=== PATIENT | male | born 1945 | race Caucasian/White ===

== ENCOUNTER 2024-10-06 03:56 | Emergency (ER) | payer BC, SELFPAY ==
[2024-10-06 04:02] VITALS: BP 152/79; PULSE 84; RESP 18; TEMP 37; O2SAT 92
--- NOTE | 2024-10-06 04:38 | ED.GENADULT ---
HPI - General Adult General Chief complaint: Weakness Stated complaint: confusion, possible UTI Time Seen by Provider: 10/06/24 04:22 History of Present Illness HPI narrative: 79-year-old male with a history of Parkinson's dementia presents to the emergency department for evaluation of weakness via EMS. Daughter and son-in-law accompany shortly after. Patient is somewhat prone to UTIs, family wonders if that may be going on he does seem weaker and more confused and has asked to come to see the doctor. No obvious fevers. No vomiting or diarrhea. Appetite has been stable. He did complain of a mild headache yesterday evening. Has not complained of chest pain or cardiac symptoms. Family reports that his blood pressure was running a little high few weeks ago but has seem to crest back to normal. There have been no obvious other focal findings other than increased weakness. He does use a wheelchair at baseline but does attempt to get up and go to the bathroom by himself at times and does therefore subsequently fall. Daughter last visited him yesterday evening when she will him [facility]. He said that he had felt off but could not give more descriptive symptoms. He is full code. Does not seem to be in pain or any other localizing symptoms per family. Past medical history notable for chronic weakness secondary to Parkinson's disease. He also has diabetes, hypertension and hyperlipidemia. His medications are reviewed, do seem to be listed accurate in comparison to his records from [facility]. He is a nonsmoker, full code, good family involvement. No allergies. ROS is difficult to obtain from patient as speaking is fairly difficult for him but he will answer yes no on my review of systems questions and seems pertinent only for weakness and headache. Otherwise negative times 12 systems. Related Data Home Medications ?Medication ?Instructions ?Recorded ?Confirmed aspirin 81 mg tablet,delayed 81 mg PO DAILY 10/06/24 10/06/24 release atorvastatin 40 mg tablet 40 mg PO DAILY 10/06/24 10/06/24 carbidopa 25 mg-levodopa 100 mg tab PO 10/06/24 tablet cholecalciferol (vitamin D3) 25 25 mcg PO 2XW 10/06/24 10/06/24 mcg (1,000 unit) capsule donepezil 10 mg tablet 10 mg PO QPM 10/06/24 10/06/24 fludrocortisone 0.1 mg tablet 0.1 mg PO DAILY 10/06/24 10/06/24 glipizide 2.5 mg tablet 2.5 mg PO QAM diabetes mellitus 10/06/24 10/06/24 type 2 magnesium L-lactate 84 mg 1 PO BID 10/06/24 tablet,extended release (Magtab) metformin 500 mg tablet mg PO 10/06/24 midodrine 2.5 mg tablet 2.5 mg PO DAILY PRN blood pressure 10/06/24 10/06/24 sennosides 8.6 mg tablet (senna) 8.6 mg PO QPM constipation 10/06/24 10/06/24 Allergies Allergy/AdvReac Type Severity Reaction Status Date / Time No Known Drug Allergies Allergy Verified 10/06/24 04:10 Exam Const: Vital Signs, click to edit/add: Vital Signs - 24 hr 10/06/24 04:02 Temperature 98.6 F Pulse Rate [Pulse Oximeter] 84 Respiratory Rate 18 Blood Pressure [Ri ght Upper Arm] 152/79 H Pulse Oximetry 92 Oxygen Delivery Me thod Room Air Documenting provider has reviewed patient's vital signs: yes Common normals: no apparent distress General appearance: well kempt Other: Flat affect and masked faces consistent with Parkinson's disease. He will slowly answer yes no for questions insight does seem fair. Appears well nourished and well hydrated. Well cared for. HENMT: Common normals: normocephalic Head and scalp: normocephalic Mouth: oral and palatal mucosa normal Throat: posterior oropharynx normal Other: Masked faces but symmetric with no droop. Eye: Common normals: PERRL and EOMs intact bilaterally Pupil: PERRL Neck & C-Spine: Common normals: no lymphadenopathy General: normal visual inspection Chest: Common normals: inspection of chest normal Resp: Common normals: normal respiratory effort and no use of accessory muscles Other: Decreased breath sounds throughout but unlabored. No obvious crackles or wheeze. Cardio: Common normals: regular rate, regular rhythm, S1 normal heart sound, S2 normal heart sound and no murmurs Rate: regular rate Rhythm: regular rhythm Heart sounds: S1 normal and S2 normal GI: Common normals: Normal to inspection, nondistended, normoactive bowel sounds present, soft to palpation, non-tender, no hepatosplenomegaly and no masses Palpation: soft and no hepatosplenomegaly Extremity: Other: Extremities are examined with no obvious ulcers. There is a trace amount of edema of the lower extremities but no weeping or open sores. Appears pretty symmetric. Neuro: Other: Muscular rigidity consistent with Parkinson's disease. He can move on command but it is very slow and difficult. It does however seem symmetric. Psych: Appearance: well kempt Attitude: calm Insight: fair Judgement: limited Skin: Common normals: no rashes or lesions noted General skin exam: no rashes or lesions noted Course Course ED Course: 79-year-old male presenting with generalized weakness in the setting of chronic weakness and debility secondary to Parkinson's disease with questionable recent mild headache. Suspect viral illness, cannot exclude UTI, metabolic abnormality, acute coronary syndrome, acidosis, dehydration, electrolyte abnormality, other infections. Will start with viral swabs, basic labs, urinalysis, EKG. Vitals are stable at this time. Give Tylenol for headache and Await findings. Reevaluation(s) Time of Reevaluation #1: 05:53 Reevaluation #1: Re-examined patient, he is asleep, will arouse to voice. Family returned and I counseled them on the lab findings and results of monitoring. These are all reassuring. I do not think there is anything life-threatening going on. He may have a mild viral illness contributing to not feeling well but this could also be his dementia, things being out of routine because of the holiday, minor other nuances that the patient just can not convey to us. At this time, I recommend Tylenol p.r.n. for headache and myalgias and otherwise conservative management. Family was comfortable with this and is agreeable to driving him home. Vital Signs Vital signs: Initial Vital Signs Temperature 98.6 F 10/06/24 04:02 Temperature Source Temporal Artery Scan 10/06/24 04:02 Pulse Rate 84 10/06/24 04:02 Respiratory Rate 18 10/06/24 04:02 Blood Pressure 152/79 H 10/06/24 04:02 Blood Pressure Mean 103 10/06/24 04:02 Blood Pressure Position Supine 10/06/24 04:02 Pulse Oximetry 92 10/06/24 04:02 Oxygen Delivery Method Room Air 10/06/24 04:02 Vital Signs Temperature 98.6 F 10/06/24 04:02 Pulse Rate 84 10/06/24 04:02 Respiratory Rate 18 10/06/24 04:02 Blood Pressure 152/79 H 10/06/24 04:02 Pulse Oximetry 92 10/06/24 04:02 Oxygen Delivery Method Room Air 10/06/24 04:02 Temperature 98.6 F 10/06/24 04:02 Pulse Rate 84 10/06/24 04:02 Respiratory Rate 18 10/06/24 04:02 Blood Pressure 152/79 H 10/06/24 04:02 Pulse Oximetry 92 10/06/24 04:02 Oxygen Delivery Method Room Air 10/06/24 04:02 Medications Administered Medications: Discontinued Medications Generic Name Dose Route Start Last Admin Trade Name Freq PRN Reason Stop Dose Admin Acetaminophen 1,000 mg 10/06/24 04:48 10/06/24 04:55 Acetaminophen 500 Mg Tablet PO 10/06/24 04:49 1,000 mg ONCE ONE Administration Medical Decision Making Lab Data Lab results reviewed: Yes I reviewed the patient's lab results Lab results narrative: Labs all reassuring. Labs: Lab Results 10/06/24 10/06/24 Range/Units 04:23 05:00 WBC 9.09 (4.50-11.00) K/uL RBC 4.07 L (4.30-5.90) m/uL Hgb 12.5 L (13.5-17.5) gm/dL Hct 38.6 (37.0-53.0) % MCV 95 (80-100) fL MCH 31 (26-34) pg MCHC 32 (32-36) gm/dL RDW Coeff of Kenia 12.7 (11.5-15.5) % Plt Count 239 (140-440) K/uL Neut % (Auto) 75.4 H (42.0-72.0) % Lymph % (Auto) 11.8 L (20-44) % Bates % (Auto) 8.8 (0.0-11.0) % Eos % (Auto) 3.5 (0.0-7.0) % Baso % (Auto) 0.2 (0.0-3.0) % Neut # (Auto) 6.90 (1.7-7.0) K/uL Lymph # (Auto) 1.10 (0.90-2.90) K/uL Bates # (Auto) 0.80 (0.00-0.90) K/UL Eos # (Auto) 0.32 (0.00-0.50) K/uL Baso # (Auto) 0.02 (0.00-0.30) K/uL Abs Immat Gran (auto) 0.03 (0.00-0.30) K/uL Imm/Tot Granulo (auto) 0.3 % Sodium 136 (135-149) mmol/L Potassium 3.9 (3.6-5.1) mmol/L Chloride 101 (96-114) mmol/L Carbon Dioxide 28 (20-32) mmol/L Anion Gap 7 (7-15) mEq/L BUN 17 (7-30) mg/dL Creatinine 0.9 (0.5-1.5) mg/dL Estimated GFR 86 ml/min Glucose 137 H (60-115) mg/dL Lactate 2.0 H (0.5-1.9) mmol/L Calcium 8.9 (8.4-10.6) mg/dL Total Bilirubin 0.3 (0.1-1.5) mg/dL AST 19 (12-35) U/L ALT 9 (4-50) U/L Alkaline Phosphatase 101 (40-150) U/L C-Reactive Protein < 0.5 L (0.5-1.0) mg/dL NT-Pro-B Natriuret Pep 351 pg/mL Total Protein 7.1 (6.0-8.3) g/dL Albumin 4.0 (3.3-5.0) g/dL Urine Color Yellow (Yellow) Urine Appearance Clear (Clear) Urine pH 6.5 (5.0-8.5) Ur Specific [place] 1.020 (1.000-1.030) Urine Protein Negative (Negative) Urine Glucose (UA) Negative (Negative) Urine Ketones Negative (Negative) Urine Blood Negative (Negative) Urine Nitrite Negative (Negative) Urine Bilirubin Negative (Negative) Urine Urobilinogen 0.2 (0.2-1.0) Ur Leukocyte Esterase Negative (Negative) Urine RBC 0-2 (0-2) Urine WBC 0-2 (0-5) Ur Squamous Epith Cells Few (None-Few) Urine Bacteria None (None) SARS-CoV-2 (PCR) Negative SARS-CoV-2 (Negative) Influenza Type A (PCR) Negative PCR FLU A (Negative) Influenza Type B (PCR) Negative PCR FLU B (Negative) RSV (PCR) Negative PCR RSV (Negative) POC Troponin I 0.01 (0.01-0.04) ng/ml ECG Data Attestation: I personally reviewed and interpreted this ECG as follows: Prior ECG tracings: available for review (Comparison 05/08/2022) Interpretation: Sinus rhythm. Interpretation is difficult because of the parkinsonian tremor. But the interval and axis seem unchanged from 629/22. There is a left axis deviation but no obvious new ST or T-wave changes. Stable EKG. Discharge Plan Discharge Clinical Impression: Feared complaint without diagnosis Patient Disposition: Home w/ Parent or Adult Condition: Stable Instructions: Weakness (ED) Additional Instructions: As we discussed, all labs, urine test, EKG, cardiac workup, electrolytes, liver enzymes, inflammatory markers all look normal. This is great news. I suspect that he is not feeling well from some mild viral illness but all of the swabs for the more dangerous conditions such as COVID, RSV and influenza are negative. I recommend Tylenol 1000 mg 3 times daily for headache and discomfort for the next few days. Continue to watch for any progression of symptoms. At this time I do not recommend changing any of his home medications or current treatments. Please return to the emergency department if symptoms worsen, fevers, vomiting or stroke-like symptoms. Activity Level: No Restrictions Discharge Diet: Regular Prescriptions: No Action atorvastatin 40 mg tablet 40 mg PO DAILY metformin 500 mg tablet PO sennosides [senna] 8.6 mg tablet 8.6 mg PO QPM donepezil 10 mg tablet 10 mg PO QPM aspirin 81 mg tablet,delayed release (DR/EC) 81 mg PO DAILY midodrine 2.5 mg tablet 2.5 mg PO DAILY PRN (Reason: blood pressure) carbidopa-levodopa 25-100 mg tablet PO fludrocortisone 0.1 mg tablet 0.1 mg PO DAILY cholecalciferol (vitamin D3) 25 mcg (1,000 unit) capsule 25 mcg PO 2XW magnesium L-lactate [Magtab] 84 mg tablet extended release 1 PO BID glipizide 2.5 mg tablet 2.5 mg PO QAM Follow Up/Referrals: Maureen Lester MD [Primary Care Provider] - Stand Alone Forms: MyHealth Info Instructions
[2024-10-06] MEDS: ACETAMINOPHEN 500 MG TABLET 1000 MG PO (04:55)
--- OUTSIDE RECORDS SUMMARY | 2024-10-06 04:55 | XMS_ITS | Clinical Summary ---
Author Organization [facility] Address [address], [place] [address] Care Team Providers Care Online Advertising Analyst Name Role Phone Unavailable Primary Care Provider Unavailabl e Source Comments You are receiving this document as you are listed as the primary care provider,follow-up provider, or the patient has been referred to you for consultation.This is in compliance with the Medicare and[facility] EHR Incentive Program,which states Providers who transition their patient to another setting of careor provider of care or refers their patient to another provider of care shouldprovide summary care record for each transition of care or referral. [employer] Allergies No known active allergies Medications Medication Sig Dispensed Refills Start Date End Date Status aspirin EC 81 MG enteric coated tablet Take 1 Tablet (81 mg) by mouth daily. Active atorvastatin (LIPITOR) 40 MG tablet Take 1 Tablet (40 mg) by mouth daily. Active carbidopa-levodopa (SINEMET) 25-100 MG tablet Take 2 Tablets by mouth three times a day. 01/22/2023 Active cyanocobalamin 500 MCG tablet Take 2 Tablets (1,000 mcg) by mouth daily. Active fludrocortisone (FLORINEF) 0.1 MG tablet Take 1 Tablet (0.1 mg) by mouth daily. Active MAGTAB 84 MG (7MEQ) Take 84 mg by mouth two times a day. Active metFORMIN (GLUCOPHAGE) 1000 MG tablet Take 1 Tablet (1,000 mg) by mouth two times a day. 10/09/2022 Active midodrine (PROAMATINE) 2.5 MG tablet Take 1 Tablet (2.5 mg) by mouth two times a day. 01/31/2023 Active acetaminophen (TYLENOL) 325 MG tablet Take 1-2 Tablets (325-650 mg) by mouth every 6 hours as needed for Pain. Active donepezil (ARICEPT) 10 MG tablet Take 1 Tablet (10 mg) by mouth daily at bedtime. 90 Tablet 3 05/01/2023 Active Active Problems Problem Noted Date Diagnosed Date Parkinsonism 03/03/2023 Dementia 03/03/2023 Type 2 diabetes mellitus wit h diabetic polyneuropathy, without long-term current use of insulin 03/03/2023 Social History Tobacco Use Types Packs/Day Years Used Date Smoking Tobacco: Never Assessed Sex and Gender Information Value Date Recorded Sex Assigned at Not on file Gender Identity Not on file Sexual Orientation Not on file Last Filed Vital Signs Vital Sign Reading Time Taken Comments Blood Pressure 134/66 05/01/2023 3:21 PM CDT Pulse 88 05/01/2023 3:21 PM CDT Temperature - - Respiratory Rate - - Oxygen Saturation - - Inhaled Oxygen Concentration - - Weight 71.8 kg (158 lb 4.8 oz) 05/01/2023 3:19 P M CDT Height 157.5 cm (5' 2) 03/03/2023 3:56 PM CDT Body Mass Index 28.95 03/03/2023 3:56 PM CDT Plan of Treatment Health Maintenance Due Date Last Done Comments Diabetes: Creatinine 1945 Diabetes: Eye Exam 1943 Diabetes: Foot Exam 1943 Diabetes: Lipid Panel 1943 Diabetes: Urine Microalbumin 1945 Medicare Annual Wellness Visit 1945 Zoster/Shingles (2 of 3) 09/24/2012 07/30/2012 RSV (1 - 1-dose 75+ series) 2018 Diabetes: HGBA1C 06/22/2023 12/23/2022, , 05/14/2022 COVID-19 Vaccine ( season) 2024 12/31/2022, 05/29/2022, 12/18/2021, Additional history exists Influenza (#1) 2024 08/23/2021, 1005/2020, 08/16/2020, Additional history exists DTaP/Tdap/Td (3 - Tdap) 11/06/2031 11/06/2021, 07/23 Pneumococcal 65+ Yrs Completed 01/06/2015, 07/30/20 13 HepA Aged Out No longer eligi ble based on patient's age to complete this topic HepB Aged Out No longer eligi ble based on patient's age to complete this topic Hib Aged Out No longer eligi ble based on patient's age to complete this topic IPV (Polio) Aged Out No longer eligi ble based on patient's age to complete this topic Infant RSV Aged Out No longer eligi ble based on patient's age to complete this topic MCV4 Aged Out No longer eligi ble based on patient's age to complete this topic
--- OUTSIDE RECORDS SUMMARY | 2024-10-06 04:55 | XMS_ITS | Clinical Summary ---
Author Organization [facility] Address [place], [place] [address] Care Team Providers Care Cardiology Associate Name Role Phone Cheo Olson MD Primary Care Provider [phone] Allergies Active Allergy Reactions Criticality Noted Date Comments Sertraline Agitation,Other - De scribe In Comment Field 01/27/2017 Medications Medication Sig Dispensed Refills Start Date End Date Status carbidopa-levodop a, 25-100 mg, (SINEMET 25-100) 25-100 mg tablet Take 2 Tablets by mouth 3 times daily. 03/05/2021 Active aspirin (ECOTRIN) 81 mg enteric coated tablet Take 81 mg by mouth. A ctive Syringe with Needle, Disp, 3 mL 25 x 5/8Indications:B 12 deficiency For monthly administration of IM Vitamin B12. 3 Each 3 07/05/2022 Active cyanocobalamin (VITAMIN B12) 1,000 mcg/mL injectionIndicati ons:B12 deficiency Inject 1 mL (1,000 mcg) intramuscular every 4 weeks. 1 mL 11 09/03/2022 Active Magtab 84 mgIndications:Hyp omagnesemia Take 1 Tablet (84 mg) by mouth once daily. 60 Tablet 5 09/17/2022 Active atorvastatin (LIPITOR) 40 mg tabletIndications :Type 2 diabetes mellitus without complication, without long-term current use of insulin (HC) TAKE 1 TAB BY MOUTH ONCE DAILY 90 Tablet 3 12/16/2022 Active blood sugar diagnostic stripIndications: Type 2 diabetes mellitus without complication, without long-term current use of insulin (HC) Dispense item covered by pt ins. E11.9 NIDDM type II - Test 1 time/day 100 Each 3 03/10/2023 Active lancetsIndication s:Type 2 diabetes mellitus without complication, without long-term current use of insulin (HC) As directed. Test 1 times per day. 100 Each 3 03/10/2023 Active blood-glucose meterIndications: Type 2 diabetes mellitus without complication, without long-term current use of insulin (HC) Dispense meter, test strips, lancets covered by pt ins. E11.9 NIDDM type II - Test 1 time/day 1 Each 03/10/2023 Active fludrocortisone (FLORINEF) 0.1 mg tabletIndications :Idiopathic hypotension TAKE 1 TAB BY MOUTH ONCE DAILY 90 Tablet 3 05/05/2023 Active naproxen (ALEVE) 220 mg tablet Take 1 Tablet (220 mg) by mouth every 8 hours if needed for Pain. 0 06/09/2023 Active acetaminophen (TYLENOL) 325 mg tablet Take 1 Tablet (325 mg) by mouth 4 times daily if needed for Pain. Max acetaminophen dose: 4000mg in 24 hrs. 0 06/09/2023 Active midodrine (PROAMATINE) 2.5 mg tabletIndications :Hypotension, unspecified hypotension type,Personal history of fall TAKE 1 TABLET (2.5 MG) BY MOUTH TWO TIMES DAILY. 180 Tablet 3 06/30/2023 Active Active Problems Problem Noted Date Diagnosed Date Dementia 03/03/2023 Idiopathic hypotension 07/30/2022 B12 deficiency 05/14/2022 History of AAA (abdominal aortic aneurysm) repai r 05/14/2022 Microalbuminuria 08/10/2018 GERD (gastroesophageal reflux disease) 8 Parkinsonism 06/24/2016 History of tobacco use 07/14/2012 Hyperlipidemia 05/25/2009 Type 2 diabetes mellitus wit h diabetic polyneuropathy, without long-term current use of insulin 05/25/2009 Resolved Problems Problem Noted Date Diagnosed Date Resolved Date Disorder of nervous system d ue to type 2 diabetes mellitus 06/24/2016 05/14/2022 AAA (abdominal aortic aneury sm) without rupture 06/19/2015 05/14/2022 Overview (05/14/2022): 11/27: 4.73cm 12/27: 4.78cm 01/22: 4.3cm Hypertension 05/25/2009 07/30/2022 Immunizations Name Administration Dates Next Due COVID-19 vaccine (Moderna 100mcg/0.5mL) PF, MDV 03/14/2021,02/08/2021 Hepatitis B (Adult) 10/26/2008 Hepatitis B, Unspecified 05/26/2008,04/26/2008 Influenza A (H1N1), Inactiva marylou (Age >=3 Years) 10/25/2009 Influenza Virus, Unspecified 08/16/2020, 08/12/2019,08/10/2018,2016,08/17/2016,08/26/2015 Pneumococcal Poly,23-Valent (Pneumovax) 07/30/2013 Pneumococcal conj 13-Valent (Prevnar 13) 01/06/2015 Td, Preservative Free (age > = 7 Years) 06/21/2019 Tdap 07/23/2012 Zoster (Zostavax-ZVL, live) 07/30/2012 Social History Tobacco Use Types Packs/Day Years Used Date Smoking Tobacco: Former Cigarettes Q uit: 1982 Smokeless Tobacco: Never Tobacco Cessation:Counseling Given: Not Answered Alcohol Use Standard Drinks/Week Comments Not Currently 0 (1 standard drink = 0.6 oz pur e alcohol) Social Connections Answer Date Recorded Frequency of Communication with Friends and Fami ly Not on file 06/20/2023 Financial Resource Strain Answer Date R ecorded Difficulty of Paying Living Expenses 3 06/18/2022 Difficulty of Paying Living Expenses Not on file 06/18/2022 Food Insecurity Answer Date Recorded Worried About Running Out of Food in the Last Ye ar 1 06/18/2022 Transportation Needs Answer Date Record ed Lack of Transportation (Medical) 1 06/18/2022 Housing Stability Answer Date Recorded Unable to Pay for Housing in the Last Year 1 06/18/2022 Sex and Gender Information Value Date Recorded Sex Assigned at Not on file Gender Identity Not on file Sexual Orientation Not on file Obstetrics History Last Filed Vital Signs Vital Sign Reading Time Taken Comments Blood Pressure 130/70 07/02/2023 7:38 AM CDT Pulse 72 07/02/2023 7:38 AM CDT Temperature - - Respiratory Rate - - Oxygen Saturation 97% 06/18/2022 3:59 PM CDT Inhaled Oxygen Concentration - - Weight 71.2 kg (157 lb) 07/02/2023 7:38 AM CDT Height 152.4 cm (5') 12/18/2022 4:04 PM POLICE LIAISON OFFICER Body Mass Index 30.66 12/18/2022 4:04 PM POLICE LIAISON OFFICER Plan of Treatment Health Maintenance Due Date Last Done Comments Zoster (shingles) series for age 50+ (2 of 3) 09/24/2012 07/30/2012 RSV vaccine for adults or (1 - 1-dose 75+ series) 2018 BMI (ht and wt on same day) for age 18+ 12/18/2023 12/18/2022 Medicare Wellness for age 65+ 07/02/2024, 04/18/2022 [facility] COVID-19 vaccine series ( season) 2024 03/14/2021, 02/08/2021 Influenza for age 65+ 07/11/2024 08/16/2020 , 08/12/2019, 08/10/2018, Additional history exists Tetanus booster 06/21/2029 06/21/2019, 07/23/2012 Tdap Completed 07/23/2012 Pneumococcal series for age 65+ Completed 5, 07/30/2013 Care Teams Cardiology Associate Relationship Specialty [place] [id number] [place] [address] PCP - General Family Practice 05/14/22
--- OUTSIDE RECORDS SUMMARY | 2024-10-06 04:56 | XMS_ITS | Referral Summary ---
Author Organization [place] Address [address] [place] [id number] Care Team Providers Care Cushion Maker Name Role Phone Tessy Monge RN Unavailable Unavaila ble Maureen Lester MD Unavailable [phone] Maureen Lester MD Primary Care Provider [phone] Encounters Date Type Department Care Team Description 07/26/2024 Documentation Only [facility] [address] [facility] [address] [place] [address] [facility] Advance Care Planning 07/22/2024 Travel 07/22/2024 7:45 PM CDT - 07/22/2024 11:50 PM CDT Emergency [facility] [address] [place] [address] Angelina Bassett MD Fall, initial encounter; Contusion of right elbow, initial encounter; Elbow laceration, right, initial encounter Discharge Disposition: Half-Way Facility from Last 3 Months Allergies Active Allergy Reactions Criticality Noted Date Comments Sertraline Other (See Comments) 01/27/2017 Medications carbidopa-levodo pa (SINEMET) 25-100 MG tablet Take 2 tablets by mouth 3 times daily 1 Active metFORMIN (GLUCOPHAGE) 500 MG tablet Take 1,000 mg by mouth 2 times daily (500MG X 2 = 1,000MG) 0 Active omeprazole (PRILOSEC) [address] capsule Take 20 mg by mouth daily 1 Active atorvastatin (LIPITOR) 40 MG tablet Take 40 mg by mouth At Bedtime 1 Active aspirin (ASA) 81 MG EC tablet Take 81 mg by mouth Active Cyanocobalamin (B-12 IJ) Inject 1 Dose as directed every 30 days Active midodrine (PROAMATINE) 2.5 MG tabletIndication s:Orthostatic hypotension Take 1 tablet (2.5 mg) by mouth 3 times daily 90 tablet 1 2 Active Active Problems Problem Noted Date Diagnosed Date AAA (abdominal aortic aneurysm) without rupture 11/23/2021 Social History Tobacco Use Types Packs/Day Years Used Date Smoking Tobacco: Never Smokeless Tobacco: Never Tobacco Cessation:Counseling Given: Yes Alcohol Use Standard Drinks/Week Comments Yes 0 (1 standard drink = 0.6 oz pur e alcohol) occassional PHQ-2 Answer Date Recorded PHQ-2 Score 0 11/16/2021 Adolescent Education Answer Date Record ed Getting School Help Needed Not on file 08/02 Sex and Gender Information Value Date Recorded Sex Assigned at Not on file Legal Sex Male 4:46 PM SURVEILLANCE INVESTIGATOR Gender Identity Not on file Sexual Orientation Not on file Last Filed Vital Signs Vital Sign Reading Time Taken Comments Blood Pressure 148/86 07/22/2024 11:10 PM CDT Pulse 120 07/22/2024 11:10 PM CDT Temperature 37.1 C (98.7 F) 07/22/2024 7:54 PM CDT Respiratory Rate 15 07/22/2024 7:54 PM CDT Oxygen Saturation 93% 07/22/2024 11:11 PM CDT Inhaled Oxygen Concentration - - Weight 74.8 kg (165 lb) 07/22/2024 7:54 PM CDT Height 157.5 cm (5' 2) 07/22/2024 7:54 PM CDT Body Mass Index 30.18 07/22/2024 7:54 PM CDT Plan of Treatment Not on file Medical Devices Implanted Type Area Loss Prevention Supervisor Device Identifier Shelf Expiration Date Model / Serial / Lot Graft Stent Endurant Ii Aaa 28mm X 14mm - [id number] Implanted:Qty: 1 on 11/23/2021 by Tripp Zaragoza MD at [facility] Graft Right: Iliac/Fem orals Mobile Location, IP INC 10/22/2023 [id number] / [id number] / Stent Graft Endurant Ii Contralateral Limb [id number] - [id number] Implanted:Qty: 1 on 11/23/2021 by Tripp Zaragoza MD at [facility] Graft Left: Iliac/Fem orals [employer] 12/04/2022 [id number] / [id number] / Stent Graft Endurant Ii Contralateral Limb [id number] - [id number] Implanted:Qty: 1 on 11/23/2021 by Tripp Zaragoza MD at [facility] Graft Right: Iliac/Fem orals [employer] 09/10/2023 [id number] / [id number] / Procedures Procedure Name Priority Date/Time Associated Diagnosis Comments BASIC METABOLIC PANEL (OUTREACH) Routine 09/23/2024 10:49 AM SURVEILLANCE INVESTIGATOR Type 2 diabetes mellitus without complications (H) Essential (primary) hypertension TRIP CHARGE - LAB ONLY Routine 09/23/2024 10:49 AM SURVEILLANCE INVESTIGATOR Type 2 diabetes mellitus without complications (H) Essential (primary) hypertension BASIC METABOLIC PANEL NO GLUCOSE (OUTREACH) Routine 09/23/2024 10:49 AM SURVEILLANCE INVESTIGATOR Type 2 diabetes mellitus without complications (H) Essential (primary) hypertension GLUCOSE (OUTREACH) Routine 09/23/2024 10 :49 AM SURVEILLANCE INVESTIGATOR Type 2 diabetes mellitus without complications (H) Essential (primary) hypertension HEMOGLOBIN A1C Routine 09/23/2024 10:49 AM SURVEILLANCE INVESTIGATOR Type 2 diabetes mellitus without complications (H) Essential (primary) hypertension XR ELBOW RIGHT 2 VIEWS STAT 07/22/2024 9:[address] CERVICAL SPINE W/O CONTRAST STAT 07/22/2024 9:[address] HEAD W/O CONTRAST STAT 07/22/2024 9:13 PM CDT CBC WITH PLATELETS & DIFFERENTIAL STAT 07/22/2024 8:55 PM CDT CBC WITH PLATELETS AND DIFFERENTIAL STAT 07/22/2024 8:55 PM CDT CK TOTAL STAT 07/22/2024 8:55 PM CDT BASIC METABOLIC PANEL STAT 07/22/2024 8:55 PM CDT EKG 12-LEAD, TRACING ONLY STAT 07/22/2024 7:50 PM CDT LIPID REFLEX TO DIRECT LDL PANEL STAT Add-on 11/23/2021 6:50 AM SURVEILLANCE INVESTIGATOR from Last 3 Months or Most Recently Relevant to Health Maintenance Results * Trip Charge - LAB ONLY (09/23/2024 10:49 AM SURVEILLANCE INVESTIGATOR) Other TOPOGRAPHY UNKNOWN / Unknown Billing only / Unknown 09/23/2024 10:49 AM SURVEILLANCE INVESTIGATOR 09/23/2024 12:59 PM SURVEILLANCE INVESTIGATOR us Carolina Mckee MD LAB CHARGE PERFORMABLES Final Result [facility] [address] * Basic Metabolic Panel No Glucose (OUTREACH) (09/23/2024 10:49 AM SURVEILLANCE INVESTIGATOR) Sodium 139 135 - 145 mmol/L 09/23/2024 2:51 PM SURVEILLANCE INVESTIGATOR [facility] Potassium 4.0 3.4 - 5.3 mmol/L 09/23/2024 2:51 PM SURVEILLANCE INVESTIGATOR [facility] Chloride 99 98 - 107 mmol/L 09/23/2024 2:51 PM SURVEILLANCE INVESTIGATOR [facility] Carbon Dioxide (CO2) 27 22 - 29 mmol/L 09/23/2024 2:51 PM SURVEILLANCE INVESTIGATOR [facility] Anion Gap 13 7 - 15 mmol/L 09/23/2024 2:51 PM SURVEILLANCE INVESTIGATOR [facility] Urea Nitrogen 18.5 8.0 - 23.0 mg/dL 09/23/2024 2:51 PM SURVEILLANCE INVESTIGATOR [facility] Creatinine 0.93 0.67 - 1.17 mg/dL 09/23/2024 2:51 PM SURVEILLANCE INVESTIGATOR [facility] GFR Estimate 82 >60 mL/min/1.7 3m2 09/23/2024 2:51 PM SURVEILLANCE INVESTIGATOR [facility] Calcium 9.5 8.8 - 10.4 mg/dL 09/23/2024 2:51 PM SURVEILLANCE INVESTIGATOR [facility] Comment:Reference intervals for this test were updated on 05/25/2024 to reflect our healthy population more accurately. There may be differences in the flagging of prior results with similar values performed with this method. Those prior results can be interpreted in the context of the updated reference intervals. Blood STRUCTURE OF LEFT UPPER LIMB / Unknown Venipuncture / Unknown 09/23/2024 10:49 AM SURVEILLANCE INVESTIGATOR 09/23/2024 12:59 PM SURVEILLANCE INVESTIGATOR us Carolina Mckee MD LAB - BLOOD ORDERABLES Final Result Performing Organization Address City/[facility]/ZIP Co de Phone Number [facility] [place] [facility] [address] [facility], [address] * (ABNORMAL) Glucose (OUTREACH) (09/23/2024 10:49 AM SURVEILLANCE INVESTIGATOR) Glucose 250(H) 70 - 99 mg/dL 09/23/2024 3:08 PM SURVEILLANCE INVESTIGATOR [facility] Blood STRUCTURE OF LEFT UPPER LIMB / Unknown Venipuncture / Unknown 09/23/2024 10:49 AM SURVEILLANCE INVESTIGATOR 09/23/2024 12:59 PM SURVEILLANCE INVESTIGATOR us Carolina Mckee MD LAB - BLOOD ORDERABLES Final Result [facility] [place] [facility] [address] [facility], [address] [id number] * (ABNORMAL) Hemoglobin A1c (09/23/2024 10:49 AM SURVEILLANCE INVESTIGATOR) Estimated Average Glucose 194(H) <117 mg/dL 09/23/2024 2:54 PM SURVEILLANCE INVESTIGATOR [facility] Hemoglobin A1C 8.4(H) <5.7 % 09/23/2024 2:54 PM SURVEILLANCE INVESTIGATOR [facility] Comment: Normal <5.7% Prediabetes 5.7-6.4% Diabetes 6.5% or higher Note: Adopted from ADA consensus guidelines. Blood STRUCTURE OF LEFT UPPER LIMB / Unknown Venipuncture / Unknown 09/23/2024 10:49 AM SURVEILLANCE INVESTIGATOR 09/23/2024 12:59 PM SURVEILLANCE INVESTIGATOR us Carolina Mckee MD LAB - BLOOD ORDERABLES Final Result [facility]ORATORY [facility] [place] [facility] [address] [facility] [address] [facility], [address] [place] [address] * XR Elbow Right 2 Views (07/22/2024 9:30 PM CDT) Anatomical Region Laterality Modality Elbow, Right Elbow Right Digital Radio graphy 07/22/2024 9:30 PM CDT Impressions 07/22/2024 9:43 PM CDT IMPRESSION: The right elbow is negative for fracture or dislocation. There is evidence of slight irregularity along the medial epicondyle suggestive of chronic tendinopathy, tendon origin. No effusion. There is some soft tissue irregularity over the olecranon which could be secondary to contusion and laceration. No foreign body. Narrative 07/22/2024 9:43 PM CDT EXAM: XR ELBOW RIGHT 2 VIEWS LOCATION: [facility] DATE: 07/22/2024 INDICATION: trauma, pain COMPARISON: None. Procedure Note Bryon Garcia MD - 07/22/2024 EXAM: XR ELBOW RIGHT 2 VIEWS LOCATION: [facility] DATE: 07/22/2024 INDICATION: trauma, pain COMPARISON: None. IMPRESSION: The right elbow is negative for fracture or dislocation. Thereis evidence of slight irregularity along the medial epicondyle suggestiveof chronic tendinopathy, tendon origin. No effusion. There is some softtissue irregularity over the olecranon which could be secondary to contusion and laceration. No foreignbody. us Angelina Bassett MD IMG DIAGNOSTIC IMAGING O RDERABLES Final Result * CT Cervical Spine w/o Contrast (07/22/2024 9:14 PM CDT) Anatomical Region Laterality Modality Spine, SUBRAD CT NEURO, SUBR AD CT NEURO, UMP CT SPINE, RAD CT Computed Tomography 07/22/2024 9:14 PM CDT Impressions 07/22/2024 10:07 PM CDT IMPRESSION: HEAD CT: 1. No acute intracranial process. CERVICAL SPINE CT: 1. No CT evidence for acute fracture or post traumatic subluxation. Narrative 07/22/2024 10:07 PM CDT EXAM: CT HEAD W/O CONTRAST, CT CERVICAL SPINE W/O CONTRAST LOCATION: [facility] DATE: 07/22/2024 INDICATION: trauma, possible head injury, dementia COMPARISON: None. TECHNIQUE: 1) Routine CT Head without IV contrast. Multiplanar reformats. Dose reduction techniques were used. 2) Routine CT Cervical Spine without IV contrast. Multiplanar reformats. Dose reduction techniques were used. FINDINGS: HEAD CT: INTRACRANIAL CONTENTS: No intracranial hemorrhage, extraaxial collection, or mass effect. No CT evidence of acute infarct. Moderate presumed chronic small vessel ischemic changes. Mild to moderate generalized volume loss. No hydrocephalus. VISUALIZED ORBITS/SINUSES/MASTOIDS: Prior left cataract surgery. Visualized portions of the orbits are otherwise unremarkable. Mild mucosal thickening scattered about the paranasal sinuses. No middle ear or mastoid effusion. BONES/SOFT TISSUES: No acute abnormality. CERVICAL SPINE CT: VERTEBRA: Normal vertebral body heights and alignment. No fracture or posttraumatic subluxation. CANAL/FORAMINA: No canal or neural foraminal stenosis. PARASPINAL: No extraspinal abnormality. Visualized lung de jesus are clear. Procedure Note Jaylon Garcia MD - 07/22/2024 EXAM: CT HEAD W/O CONTRAST, CT CERVICAL SPINE W/O CONTRAST LOCATION: [facility] DATE: 07/22/2024 INDICATION: trauma, possible head injury, dementia COMPARISON: None. TECHNIQUE: 1) Routine CT Head without IV contrast. Multiplanar reformats. Dosereduction techniques were used. 2) Routine CT Cervical Spine without IV contrast. Multiplanar reformats.Dose reduction techniques were used. FINDINGS: HEAD CT: INTRACRANIAL CONTENTS: No intracranial hemorrhage, extraaxial collection,or mass effect. No CT evidence of acute infarct. Moderate presumedchronic small vessel ischemic changes. Mild to moderate generalized volumeloss. No hydrocephalus. VISUALIZED ORBITS/SINUSES/MASTOIDS: Prior left cataract surgery.Visualized portions of the orbits are otherwise unremarkable. Mild mucosalthickening scattered about the paranasal sinuses. No middle ear or mastoideffusion. BONES/SOFT TISSUES: No acute abnormality. CERVICAL SPINE CT: VERTEBRA: Normal vertebral body heights and alignment. No fracture orposttraumatic subluxation. CANAL/FORAMINA: No canal or neural foraminal stenosis. PARASPINAL: No extraspinal abnormality. Visualized lung de jesus areclear. IMPRESSION: HEAD CT: 1. No acute intracranial process. CERVICAL SPINE CT: 1. No CT evidence for acute fracture or post traumatic subluxation. Angelina Bassett MD IMG CT ORDERABLES Final Result * CT Head w/o Contrast (07/22/2024 9:13 PM CDT) Anatomical Region Laterality Modality Head, SUBRAD CT NEURO, SUBRA D CT NEURO, UMP CT NEURO, RAD CT Computed Tomography 07/22/2024 9:13 PM CDT Impressions 07/22/2024 10:07 PM CDT IMPRESSION: HEAD CT: 1. No acute intracranial process. CERVICAL SPINE CT: 1. No CT evidence for acute fracture or post traumatic subluxation. Narrative 07/22/2024 10:07 PM CDT EXAM: CT HEAD W/O CONTRAST, CT CERVICAL SPINE W/O CONTRAST LOCATION: [facility] DATE: 07/22/2024 INDICATION: trauma, possible head injury, dementia COMPARISON: None. TECHNIQUE: 1) Routine CT Head without IV contrast. Multiplanar reformats. Dose reduction techniques were used. 2) Routine CT Cervical Spine without IV contrast. Multiplanar reformats. Dose reduction techniques were used. FINDINGS: HEAD CT: INTRACRANIAL CONTENTS: No intracranial hemorrhage, extraaxial collection, or mass effect. No CT evidence of acute infarct. Moderate presumed chronic small vessel ischemic changes. Mild to moderate generalized volume loss. No hydrocephalus. VISUALIZED ORBITS/SINUSES/MASTOIDS: Prior left cataract surgery. Visualized portions of the orbits are otherwise unremarkable. Mild mucosal thickening scattered about the paranasal sinuses. No middle ear or mastoid effusion. BONES/SOFT TISSUES: No acute abnormality. CERVICAL SPINE CT: VERTEBRA: Normal vertebral body heights and alignment. No fracture or posttraumatic subluxation. CANAL/FORAMINA: No canal or neural foraminal stenosis. PARASPINAL: No extraspinal abnormality. Visualized lung de jesus are clear. Procedure Note Jaylon Garcia MD - 07/22/2024 EXAM: CT HEAD W/O CONTRAST, CT CERVICAL SPINE W/O CONTRAST LOCATION: [facility] DATE: 07/22/2024 INDICATION: trauma, possible head injury, dementia COMPARISON: None. TECHNIQUE: 1) Routine CT Head without IV contrast. Multiplanar reformats. Dosereduction techniques were used. 2) Routine CT Cervical Spine without IV contrast. Multiplanar reformats.Dose reduction techniques were used. FINDINGS: HEAD CT: INTRACRANIAL CONTENTS: No intracranial hemorrhage, extraaxial collection,or mass effect. No CT evidence of acute infarct. Moderate presumedchronic small vessel ischemic changes. Mild to moderate generalized volumeloss. No hydrocephalus. VISUALIZED ORBITS/SINUSES/MASTOIDS: Prior left cataract surgery.Visualized portions of the orbits are otherwise unremarkable. Mild mucosalthickening scattered about the paranasal sinuses. No middle ear or mastoideffusion. BONES/SOFT TISSUES: No acute abnormality. CERVICAL SPINE CT: VERTEBRA: Normal vertebral body heights and alignment. No fracture orposttraumatic subluxation. CANAL/FORAMINA: No canal or neural foraminal stenosis. PARASPINAL: No extraspinal abnormality. Visualized lung de jesus areclear. IMPRESSION: HEAD CT: 1. No acute intracranial process. CERVICAL SPINE CT: 1. No CT evidence for acute fracture or post traumatic subluxation. Angelina Bassett MD IM CT ORDERABLES Final Result * (ABNORMAL) CBC with platelets and differential (07/22/2024 8:55 PM CDT) WBC Count 9.8 4.0 - 11.0 10e3/uL 07/22/2024 9:03 PM CDT [facility] RBC Count 3.82(L) 4.40 - 5.90 10e6/uL 07/22/2024 9:03 PM CDT [facility] Hemoglobin 11.7(L) 13.3 - 17.7 g/dL 07/22/2024 9:03 PM CDT [facility] Hematocrit 36.4(L) 40.0 - 53.0 % 07/22/2024 9:03 PM CDT [facility] MCV 95 78 - 100 fL 07/22/2024 9:03 PM CDT [facility] MCH 30.6 26.5 - 33.0 pg 07/22/2024 9:03 PM CDT [facility] MCHC 32.1 31.5 - 36.5 g/dL 07/22/2024 9:03 PM CDT [facility] RDW 13.1 10.0 - 15.0 % 07/22/2024 9:03 PM CDT [facility] Platelet Count 229 150 - 450 10e3/uL 07/22/2024 9:03 PM CDT [facility] % Neutrophils 72 % 07/22/2024 9:03 PM CDT [facility] % Lymphocytes 14 % 07/22/2024 9:03 PM CDT [facility] % Monocytes 12 % 07/22/2024 9:03 PM CDT [facility] % Eosinophils 2 % 07/22/2024 9:03 PM CDT [facility] % Basophils 0 % 07/22/2024 9:03 PM CDT [facility] % Immature Granulocytes 1 % 07/22/2024 9:03 PM CDT [facility] NRBCs per 100 WBC 0 <1 /100 024 9:03 PM CDT [facility] Absolute Neutrophils 7.0 1.6 - 8.3 10e3/uL 07/22/2024 9:03 PM CDT [facility] Absolute Lymphocytes 1.3 0.8 - 5.3 10e3/uL 07/22/2024 9:03 PM CDT [facility] Absolute Monocytes 1.1 0.0 - 1.3 10e3/uL 07/22/2024 9:03 PM CDT [facility] Absolute Eosinophils 0.2 0.0 - 0.7 10e3/uL 07/22/2024 9:03 PM CDT [facility] Absolute Basophils 0.0 0.0 - 0.2 10e3/uL 07/22/2024 9:03 PM CDT [facility] Absolute Immature Granulocytes 0.1 <=0.4 10e3/uL 07/22/2024 9:03 PM CDT [facility] Absolute NRBCs 0.0 10e3/uL 07/22/2024 9:03 PM CDT [facility] Blood STRUCTURE OF RIGHT HAND / Unknown Venipuncture / Unknown 07/22/2024 8:55 PM CDT 07/22/2024 9:00 PM CDT Angelina Bassett MD LAB - BLOOD ORDERABLES F inal Result LABORATORY [facility] [address] Lab (1st floor, no room number) [place] [address] * CK total (07/22/2024 8:55 PM CDT) CK 44 39 - 308 U/L 07/22/2024 9:23 PM CDT LABORATORY Blood STRUCTURE OF RIGHT HAND / Unknown Venipuncture / Unknown 07/22/2024 8:55 PM CDT 07/22/2024 9:00 PM CDT us Angelina Bassett MD LAB - BLOOD ORDERABLES F inal Result [facility] [address] Lab (1st floor, no room number) [place] [address] * (ABNORMAL) Basic metabolic panel (07/22/2024 8:55 PM CDT) Sodium 136 135 - 145 mmol/L 07/22/2024 9:23 PM CDT [facility] Potassium 3.9 3.4 - 5.3 mmol/L 07/22/2024 9:23 PM CDT [facility] Chloride 99 98 - 107 mmol/L 07/22/2024 9:23 PM CDT [facility] Carbon Dioxide (CO2) 24 22 - 29 mmol/L 07/22/2024 9:23 PM CDT LABORATORY Anion Gap 13 7 - 15 mmol/L 07/22/2024 9:23 PM CDT [facility] Urea Nitrogen 19.1 8.0 - 23.0 mg/dL 07/22/2024 9:23 PM CDT [facility] Creatinine 0.88 0.67 - 1.17 mg/dL 07/22/2024 9:23 PM CDT [facility] GFR Estimate 86 >60 mL/min/1.7 3m2 07/22/2024 9:23 PM CDT [facility] Comment:eGFR calculated usin 2020 CKD-EPI equation. Calcium 9.2 8.8 - 10.4 mg/dL 07/22/2024 9:23 PM CDT [facility] Comment:Reference intervals for this test were updated on 05/25/2024 to reflect our healthy population more accurately. There may be differences in the flagging of prior results with similar values performed with this method. Those prior results can be interpreted in the context of the updated reference intervals. Glucose 178(H) 70 - 99 mg/dL 07/22/2024 9:23 PM CDT [facility] Blood STRUCTURE OF RIGHT HAND / Unknown Venipuncture / Unknown 07/22/2024 8:55 PM CDT 07/22/2024 9:00 PM CDT us Angelina Bassett MD LAB - BLOOD ORDERABLES F inal Result LABORATORY [facility] [address] [facility] Lab (1st floor, no room number) [place] [address] * EKG 12 lead (07/22/2024 7:50 PM CDT) Systolic Blood Pressure mmHg RADIOLOGY RESULTS Diastolic Blood Pressure mmHg RADIOLOGY RESULTS Ventricular Rate 78 BPM RAD IOLOGY RESULTS Atrial Rate 78 BPM RADIOLOG Y RESULTS DE Interval 202 ms RADIOLOG Y RESULTS QRS Duration 74 ms RADIOLO GY RESULTS QT 392 ms RADIOLOGY RESULTS QTc 446 ms RADIOLOGY RESULTS P [place] 17 degrees RADIOLOGY RESULTS R AXIS -33 degrees RADIOLOGY RESULTS T [place] 16 degrees RADIOLOGY RESULTS Interpretation ECG Sinus rhythm with Premature supraventricular complexes Left axis deviation Inferior infarct , age undetermined Abnormal ECG When compared with ECG of 23-Nov-2021 07:11, Premature supraventricular complexes are now Present Inferior infarct is now Present Confirmed by - EMERGENCY ROOM, PHYSICIAN ([id number]), editor school photograph HIREN ALVARES ([id number]) on 07/23/2024 7:19:34 AM RADIOLOGY RESULTS 07/22/2024 7:50 PM CDT 07/23/2024 7:19 AM CDT us Angelina Bassett MD ECG ORDERABLES Edited R esult - Final RADIOLOGY RESULTS * Lipid panel reflex to direct LDL (11/23/2021 6:50 AM SURVEILLANCE INVESTIGATOR) Cholesterol 96 <200 mg/dL 11/23/2021 8:13 AM SURVEILLANCE INVESTIGATOR LABORATORY Triglycerides 83 <150 mg/dL 11/23/2021 8:13 AM SURVEILLANCE INVESTIGATOR LABORATORY Direct Measure HDL 55 >=40 mg/dL 2021 8:13 AM SURVEILLANCE INVESTIGATOR LABORATORY LDL Cholesterol Calculated 24 <=100 mg/dL 11/23/2021 8:13 AM SURVEILLANCE INVESTIGATOR LABORATORY Non HDL Cholesterol 41 <130 mg/dL 11/23/2021 8:13 AM SURVEILLANCE INVESTIGATOR LABORATORY Blood STRUCTURE OF RIGHT UPPER LIMB / Unknown Venipuncture / Unknown 11/23/2021 6:50 AM SURVEILLANCE INVESTIGATOR 11/23/2021 6:54 AM SURVEILLANCE INVESTIGATOR Narrative LABORATORY - 11/23/2021 8:13 AM SURVEILLANCE INVESTIGATOR Cholesterol Desirable: <200 mg/dL Triglycerides Normal: Less than 150 mg/dL Borderline High: 150-199 mg/dL High: 200-499 mg/dL Very High: Greater than or equal to 500 mg/dL Direct Measure HDL Female: Greater than or equal to 50 mg/dL Male: Greater than or equal to 40 mg/dL LDL Cholesterol Desirable: <100mg/dL Above Desirable: 100-129 mg/dL Borderline High: 130-159 mg/dL High: 160-189 mg/dL Very High: >= 190 mg/dL Non HDL Cholesterol Desirable: 130 mg/dL Above Desirable: 130-159 mg/dL Borderline High: 160-189 mg/dL High: 190-219 mg/dL Very High: Greater than or equal to 220 mg/dL us Tripp Zaragoza MD LAB - BLOOD ORDERABLES Bruna l Result [facility] Lab [address] 1st floor, [address] [place] [address], [facility] [phone] from Last 3 Months or Most Recently Relevant to Health Maintenance Insurance MEDICARE [facility] MEDICARE SUPPLEMENT MEDICARE [facility] MEDICARE SUPPLEMENT Advance Directives For more information, please contact: [phone] Documents on File Type Date Recorded Patient Vocal Music Teacher Expl anation Advance Directives and Livin g Will 07/26/2024 POLST 05-22-2022 * Full Code (Latest Code Status on File) Date Activated Date Inactivated Comments 11/23/2021 10:10 AM 11/24/2021 3:18 PM All basic a nd advanced life-sustaining interventions are performed as appropriate Question Answer Comments Code status determined by: Discussion with patie nt/ legal decision maker Care Teams Cushion Maker Relationship Specialty Start Date End Date Maureen Lester MD [facility] [address], [place] [address] PCP - General Family Medicine 04/29/22 Tessy Monge, RN Specialty [place] Consultant Cardiology 11/07/21 Maureen Lester MD [address] [address] Family Medicine 04/22/22
--- OUTSIDE RECORDS SUMMARY | 2024-10-06 04:56 | XMS_ITS | Clinical Summary ---
Author Organization [facility] Address [address] [place] [address] Care Team Providers Care Rail Grinder Name Role Phone Tessy Monge RN Unavailable Unavaila ble Maureen Lester MD Unavailable [phone] Maureen Lester MD Primary Care Provider [phone] Allergies Active Allergy Reactions Criticality Noted Date [...] AAA (abdominal aortic aneurysm) without rupture 11/23/2021 Encounters Date Type Department Care Team Description 07/26/2024 Documentation Only [facility] [address] [place] [address] Ember Flower Advance Care Planning 07/22/2024 7:45 PM CDT - 07/22/2024 11:50 PM CDT Emergency [facility] Emergency Dept [address] [place] [address] Angelina Bassett MD Fall, initial encounter; Contusion of right elbow, initial encounter; Elbow laceration, right, initial encounter Discharge Disposition: Custodial Facility 07/22/2024 Travel from Last 3 Months Social History Tobacco Use Types Packs/Day Years [...] on file 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 Gender Identity Not on file Sexual Orientation [...] 07/22/2024 7:54 PM CDT Plan of Treatment Health Maintenance Due Date Last Done Comments ANNUAL REVIEW OF HM ORDERS 1943 DIABETIC FOOT EXAM 1943 EYE EXAM 1943 MICROALBUMIN 1943 FALL RISK ASSESSMENT 02/06/2008 ZOSTER IMMUNIZATION (2 of 3) 09/24/2012 07/30/2012 RSV VACCINE (1 - 1-dose 75+ series) 2018 LIPID 11/23/2022 11/23/2021 PHQ-2 (once per calendar year) 2023 11/16/2021 MEDICARE ANNUAL WELLNESS VISIT 07/02/2024 07/02/2023 COVID-19 Vaccine ( season) 2024 12/31/2022, 05/29/2022, 12/18/2021, Additional history exists INFLUENZA VACCINE (#1) 2024 , 08/23/2021, 08/16/2020, Additional history exists A1C 12/24/2024 09/23/2024, 05/11, 01/29/2024, Additional history exists BMP 07/22/2025 07/22/2024, 01/09, 09/04/2023, Additional history exists ADVANCE CARE PLANNING 07/26/2029 07/26/2024 DTAP/TDAP/TD IMMUNIZATION (4 - Td or Tdap) 11/06/2031 11/06/2021, 06/21/2019, 07/23/2012 Pneumococcal Vaccine: 65+ Years Completed 06/17/2024, 01/06/2015, 07/30/2013 HPV IMMUNIZATION Aged Out No longer e ligible based on patient's age to complete this topic MENINGITIS IMMUNIZATION Aged Out No l onger eligible based on patient's age to complete this topic RSV MONOCLONAL ANTIBODY Aged Out No l onger eligible based on patient's age to complete this topic Medical Devices Implanted Type Area Data Collector Device Identifier Shelf Expiration Date Model / Serial / Lot Graft Stent Endurant Ii Aaa 28mm X 14mm - [id number] Implanted:Qty: 1 on 11/23/2021 by Tripp Zaragoza MD at [facility] Graft Right: Iliac/Fem orals [employer] 10/22/2023 [id number] / [id number] / Stent Graft Endurant Ii Contralateral Limb [id number] - [id number] Implanted:Qty: 1 on 11/23/2021 by Tripp Zaragoza MD at [facility] Graft Left: Iliac/Fem orals [employer] 12/04/2022 [id number] / [id number] / Stent Graft Endurant Ii Contralateral Limb [id number] - [id number] Implanted:Qty: 1 on 11/23/2021 by Tripp Zaragoza MD at [facility] Graft Right: Iliac/Fem orals [employer] 09/10/2023 [id number] / [id number] / Procedures Procedure Name Priority Date/Time Associated Diagnosis Comments BASIC METABOLIC PANEL (OUTREACH) Routine 09/23/2024 10:49 AM PRODUCT FINISHER Type 2 diabetes mellitus without complications (H) Essential (primary) hypertension TRIP CHARGE - LAB ONLY Routine 09/23/2024 10:49 AM PRODUCT FINISHER Type 2 diabetes mellitus without complications (H) Essential (primary) hypertension BASIC METABOLIC PANEL NO GLUCOSE (OUTREACH) Routine 09/23/2024 10:49 AM PRODUCT FINISHER Type 2 diabetes mellitus without complications (H) Essential (primary) hypertension GLUCOSE (OUTREACH) Routine 09/23/2024 10 :49 AM PRODUCT FINISHER Type 2 diabetes mellitus without complications (H) Essential (primary) hypertension HEMOGLOBIN A1C Routine 09/23/2024 10:49 AM PRODUCT FINISHER Type 2 diabetes mellitus without complications (H) [...] LDL PANEL STAT Add-on 11/23/2021 6:50 AM PRODUCT FINISHER from Last 3 Months or Most Recently Relevant to Health Maintenance Results * Trip Charge - LAB ONLY (09/23/2024 10:49 AM PRODUCT FINISHER) Other TOPOGRAPHY UNKNOWN / Unknown Billing only / Unknown 09/23/2024 10:49 AM PRODUCT FINISHER 09/23/2024 12:59 PM PRODUCT FINISHER us Carolina Mckee MD LAB CHARGE PERFORMABLES Final Result [facility] [address] * Basic Metabolic Panel No Glucose (OUTREACH) (09/23/2024 10:49 AM PRODUCT FINISHER) Sodium 139 135 - 145 mmol/L 09/23/2024 2:51 PM PRODUCT FINISHER [facility] Potassium 4.0 3.4 - 5.3 mmol/L 09/23/2024 2:51 PM PRODUCT FINISHER [facility] Chloride 99 98 - 107 mmol/L 09/23/2024 2:51 PM PRODUCT FINISHER [facility] Carbon Dioxide (CO2) 27 22 - 29 mmol/L 09/23/2024 2:51 PM PRODUCT FINISHER [facility] Anion Gap 13 7 - 15 mmol/L 09/23/2024 2:51 PM PRODUCT FINISHER [facility] Urea Nitrogen 18.5 8.0 - 23.0 mg/dL 09/23/2024 2:51 PM PRODUCT FINISHER [facility] Creatinine 0.93 0.67 - 1.17 mg/dL 09/23/2024 2:51 PM PRODUCT FINISHER [facility] GFR Estimate 82 >60 mL/min/1.7 3m2 09/23/2024 2:51 PM PRODUCT FINISHER [facility] Calcium 9.5 8.8 - 10.4 mg/dL 09/23/2024 2:51 PM PRODUCT FINISHER [facility] Comment:Reference intervals for this test were updated on 05/25/2024 to reflect our healthy population more accurately. There may be differences in the flagging of prior results with similar values performed with this method. Those prior results can be interpreted in the context of the updated reference intervals. Blood STRUCTURE OF LEFT UPPER LIMB / Unknown Venipuncture / Unknown 09/23/2024 10:49 AM PRODUCT FINISHER 09/23/2024 12:59 PM PRODUCT FINISHER us Carolina Mckee MD LAB - BLOOD ORDERABLES Final Result Performing Organization Address City/[facility]/ZIP Co de Phone Number U LABORATORY [facility] Core Lab [address] [facility], [address] * (ABNORMAL) Glucose (OUTREACH) (09/23/2024 10:49 AM PRODUCT FINISHER) Glucose 250(H) 70 - 99 mg/dL 09/23/2024 3:08 PM PRODUCT FINISHER [facility] Blood STRUCTURE OF LEFT UPPER LIMB / Unknown Venipuncture / Unknown 09/23/2024 10:49 AM PRODUCT FINISHER 09/23/2024 12:59 PM PRODUCT FINISHER us Carolina Mckee MD LAB - BLOOD ORDERABLES Final Result Performing Organization Address City/[facility] Co de Phone Number U LABORATORY [facility] Core Lab [address] [facility], [address] * (ABNORMAL) Hemoglobin A1c (09/23/2024 10:49 AM PRODUCT FINISHER) Estimated Average Glucose 194(H) <117 mg/dL 09/23/2024 2:54 PM PRODUCT FINISHER [facility] Hemoglobin A1C 8.4(H) <5.7 % 09/23/2024 2:54 PM PRODUCT FINISHER [facility] Comment: Normal <5.7% Prediabetes 5.7-6.4% Diabetes 6.5% or higher Note: Adopted from ADA consensus guidelines. Blood STRUCTURE OF LEFT UPPER LIMB / Unknown Venipuncture / Unknown 09/23/2024 10:49 AM PRODUCT FINISHER 09/23/2024 12:59 PM PRODUCT FINISHER us Carolina Mckee MD LAB - BLOOD ORDERABLES Final Result [facility] Core Lab [address] [facility] [address], [address] [place] [address], [facility] * XR Elbow Right 2 Views (07/22/2024 [...] EXAM: XR ELBOW RIGHT 2 VIEWS LOCATION: [facility] DATE: 07/22/2024 INDICATION: trauma, pain COMPARISON: None. Procedure Note Bryon Garcia MD - 07/22/2024 EXAM: XR ELBOW RIGHT 2 VIEWS LOCATION: [facility] DATE: 07/22/2024 INDICATION: trauma, pain COMPARISON: None. IMPRESSION: The right elbow is negative for fracture or dislocation. Thereis evidence of slight irregularity along the medial epicondyle suggestiveof chronic tendinopathy, tendon origin. No effusion. There is some softtissue irregularity over the olecranon which could be secondary to contusion and laceration. No foreignbody. Angelina Bassett MD IMG DIAGNOSTIC IMAGING O [...] CONTRAST, CT CERVICAL SPINE W/O CONTRAST LOCATION: [facility] DATE: 07/22/2024 INDICATION: trauma, possible head [...] CONTRAST, CT CERVICAL SPINE W/O CONTRAST LOCATION: [facility] DATE: 07/22/2024 INDICATION: trauma, possible head [...] MD IM CT ORDERABLES Final Result * CT Head [...] CONTRAST, CT CERVICAL SPINE W/O CONTRAST LOCATION: [facility] DATE: 07/22/2024 INDICATION: trauma, possible head [...] PARASPINAL: No extraspinal abnormality. Visualized lung de jeuss are clear. Procedure Note Jaylon Garcia MD - 07/22/2024 EXAM: CT HEAD W/O CONTRAST, CT CERVICAL SPINE W/O CONTRAST LOCATION: [facility] DATE: 07/22/2024 INDICATION: trauma, possible head [...] - BLOOD ORDERABLES F inal Result LABORATORY [facility] Acute Care Lab [address] [employer] Lab (1st floor, no room number) [place] [address] * CK total (07/22/2024 8:55 PM CDT) CK 44 39 - 308 U/L 07/22/2024 9:23 PM CDT LABORATORY Blood STRUCTURE OF RIGHT HAND / Unknown Venipuncture / Unknown 07/22/2024 8:55 PM CDT 07/22/2024 9:00 PM CDT Angelina Bassett MD LAB - BLOOD ORDERABLES F inal Result Performing Organization Address City/[facility]/ZIP Co de Phone Number LABORATORY [facility] Care Lab [address] Lab (1st floor, no room number) [place] [address] * (ABNORMAL) Basic metabolic panel (07/22/2024 8:55 PM CDT) Sodium 136 135 - 145 mmol/L 07/22/2024 9:23 PM CDT LABORATORY Potassium 3.9 3.4 - 5.3 mmol/L 07/22/2024 9:23 PM CDT LABORATORY Chloride 99 98 - 107 mmol/L 07/22/2024 9:23 PM CDT LABORATORY Carbon Dioxide (CO2) 24 22 - [...] LAB - BLOOD ORDERABLES F inal Result [facility] LABORATORY [facility] Acute Care Lab [address] [facility] Lab (1st floor, no room number) [place] [address] * EKG 12 lead (07/22/2024 7:50 PM CDT) Systolic Blood Pressure mmHg RADIOLOGY RESULTS Diastolic Blood Pressure mmHg RADIOLOGY RESULTS Ventricular Rate 78 BPM RAD IOLOGY RESULTS Atrial Rate 78 BPM RADIOLOG Y RESULTS [place] Interval 202 ms RADIOLOG Y RESULTS QRS Duration 74 ms RADIOLO GY RESULTS QT 392 ms RADIOLOGY RESULTS QTc 446 ms RADIOLOGY RESULTS P [place] 17 degrees RADIOLOGY RESULTS R AXIS -33 degrees RADIOLOGY RESULTS T [place] 16 degrees RADIOLOGY RESULTS Interpretation ECG Sinus rhythm with Premature supraventricular complexes Left axis deviation Inferior infarct , age undetermined Abnormal ECG When compared with ECG of 23-Nov-2021 07:11, Premature supraventricular complexes are now Present Inferior infarct is now Present Confirmed by - EMERGENCY ROOM, PHYSICIAN ([id number]), scientific editor HIREN ALVARES ([id number]) on 07/23/2024 7:19:34 AM RADIOLOGY RESULTS 07/22/2024 7:50 PM CDT 07/23/2024 7:19 AM CDT Angelina aBssett MD ECG ORDERABLES Edited R esult - Final RADIOLOGY RESULTS * Lipid panel reflex to direct LDL (11/23/2021 6:50 AM PRODUCT FINISHER) Cholesterol 96 <200 mg/dL 11/23/2021 8:13 AM [facility] Triglycerides 83 <150 mg/dL 11/23/2021 8:13 AM PRODUCT FINISHER LABORATORY Direct Measure HDL 55 >=40 mg/dL 2021 8:13 AM [facility] LDL Cholesterol Calculated 24 <=100 mg/dL 11/23/2021 8:13 AM [facility] Non HDL Cholesterol 41 <130 mg/dL 11/23/2021 8:13 AM [facility] Blood STRUCTURE OF RIGHT UPPER LIMB / Unknown Venipuncture / Unknown 11/23/2021 6:50 AM PRODUCT FINISHER 11/23/2021 6:54 AM PRODUCT FINISHER Narrative [facility] LABORATORY - 11/23/2021 8:13 AM PRODUCT FINISHER Cholesterol Desirable: <200 mg/dL Triglycerides Normal: Less [...] LAB - BLOOD ORDERABLES Bruna l Result LABORATORY [facility] Acute Care Lab [address] 1st floor, [address] [place] [address], [place] [phone] from Last 3 Months or Most Recently Relevant to Health Maintenance Insurance MEDICARE [facility] OOS MEDICARE SUPPLEMENT MEDICARE [facility] OOS MEDICARE SUPPLEMENT Advance Directives For more information, please contact: [phone] Documents on File Type Date Recorded Patient Steel Rule Inspector Expl anation Advance Directives and Eleazar katz Will 07/26/2024 POLST 05-22-2022 * Full Code (Latest Code Status on File) Date Activated Date Inactivated Comments 11/23/2021 10:10 AM 11/24/2021 3:18 PM All basic a nd advanced life-sustaining interventions are performed as appropriate Question Answer Comments Code status determined by: Discussion with nicoe nt/ legal decision maker Care Teams Rail Grinder Relationship Specialty Start Date End Date Maureen Lester MD [facility] [address] [place] [address] PCP - General Family Medicine 04/29/22 Tessy Monge RN Specialty Director Of Surgery Cardiology 11/07/21 Maureen Lester MD [facility] [address] [address] Family Medicine 04/22/22
--- OUTSIDE RECORDS SUMMARY | 2024-10-06 04:56 | XMS_ITS | Encounter Summary ---
Author Organization [facility] Address [address] [place] [address]. [place] [address] Care Team Providers Care Waiter/Waitress Dining Car Name Role Phone Jourdan Bang Primary Care Provider + [phone] Tripp Zaragoza MD Unavailable [phone] Tessy Monge RN Unavailable Unavaila [facility] Maureen Lester MD Unavailable [phone] Maureen Lester MD Primary Care Provider + [phone] Maximiliano Diaz MD Unavailable [phone] Maximiliano Diaz MD Unavailable [phone] Encounter Details Date Type Department Care Team (Late st Contact Info) Description 04/22/2022 Telephone [facility] Heart [address] [address] Unknown Social History Tobacco Use Types Packs/Day Years Used Date Smoking Tobacco: Never Smokeless Tobacco: Never Alcohol Use Standard Drinks/Week Comments Yes 0 (1 standard drink = 0.6 oz pur e alcohol) occassional PHQ-2 Answer Date Recorded PHQ-2 Score 0 11/16/2021 Sex and Gender Information Value Date Recorded Sex Assigned at Not on file 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 Will try again tomorrow. * Telephone Encounter - Gladis Palencia - 04/22/2022 10:39 AM CDT [facility] Call Center Phone Message May a detailed message be left on voicemail: yes Reason for Call: Appointment Intake Referring Provider Name: Dr. Maureen Lester @ [facility] This is a pt of Dr. Phillip Bryan'aditi. Order was sent over as an urgent request. Pt needs to be seen for orthostatic hypotension. I am not seeing any openings for Dr. Phillip Bryan, nor any urgent openings. documented in this encounter Plan of Treatment Not on file documented as of this encounter Visit Diagnoses Not on filedocumented in this encounter Care Teams Waiter/Waitress Dining Car Relationship Specialty Start Date End Date Jourdan Bang [address] [address] PCP - General Family Medicine 09/26/21 04/28/22 Maureen Lester MD [facility] [address] [place] [address] PCP - General Family Medicine 04/29/22 Tripp Zaragoza MD [address] [address] Assigned Heart and Vascular Provider 09/30/21 04/11/23 Tessy Monge, RN Specialty Surgical Scrub Technologist Cardiology 11/07/21 Maureen Lester MD [facility] [address] [place] [address] Family Medicine 04/22/22 Maximiliano Diaz MD [address] [facility] [address] [place] [address] Assigned Heart and Vascular Provider 04/12/23 10/10/23 Maximiliano Diaz MD [address] [facility] [address] [place] [address] Assigned Heart and Vascular Provider 10/11/23 10/31/23 documented as of this encounter
--- OUTSIDE RECORDS SUMMARY | 2024-10-06 04:56 | XMS_ITS | Encounter Summary ---
Author Organization [facility] Address [address] [place] [address] Care Team Providers Care Supervisor Cytology Name Role Phone Jourdan Bang Primary Care Provider + [phone] Tripp Zaragoza MD Unavailable [phone] Tessy Monge RN Unavailable Unavaila banner Maureen Lester MD Unavailable [phone] Maureen Lester MD Primary Care Provider + [phone] Maximiliano Diaz MD Unavailable [phone] Maximiliano Diaz MD Unavailable [phone] Reason for Visit * Reason Onset Date Comments Appointment 04/22/2022 RAC on 04.29.22 Encounter Details Date Type Department Care Team (Late st Contact Info) Description 04/22/2022 Telephone [place] [address] [facility] [address] [place] [address] Maximiliano Diaz MD [address] [facility] [address] [place] [address] Appointment (RAC on 04.29.22) Social History Tobacco Use Types Packs/Day Years Used Date Smoking Tobacco: Never Smokeless Tobacco: Never Alcohol Use Standard Drinks/Week Comments Yes 0 (1 standard drink = 0.6 oz pur e alcohol) occassional PHQ-2 Answer Date Recorded PHQ-2 Score 0 11/16/2021 Sex and Gender Information Value Date Recorded Sex Assigned at Not on file 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 We searched the schedule for severalclinic locations and the next available I could find that worked for them was 04.29.22 at 3:50 [address]Dr Diaz. Adair was supposed to follow-up within 3-5 days. I wasn't able to find anything for this week. If Adair needs to be seen sooner than the , please give his son Nhan a call with a date and time of when he could be seen sooner. Action Taken: Other: Cardiology Travel Screening: Not Applicable documented in this encounter Plan of Treatment Not on file documented as of this encounter Visit Diagnoses Not on filedocumented in this encounter Care Teams Supervisor Cytology Relationship Specialty Start Date End Date Jourdan Bang [address] [address] PCP - General Family Medicine 09/26/21 04/28/22 Maureen Lester MD [facility] [address] [place] [address] PCP - General Family Medicine 04/29/22 Tripp Zaragoza MD [address] [address] Assigned Heart and Vascular Provider 09/30/21 04/11/23 Tessy Monge, RN Specialty Monumental Stonemason Cardiology 11/07/21 Maureen Lester MD [facility] [address], [place] [address] Family Medicine 04/22/22 Maximiliano Diaz MD [address] [facility] [address] [place] [address] Assigned Heart and Vascular Provider 04/12/23 10/10/23 Maximliiano Diaz MD [address] [facility] [address] [place] [address] Assigned Heart and Vascular Provider 10/11/23 10/31/23 documented as of this encounter
--- OUTSIDE RECORDS SUMMARY | 2024-10-06 04:56 | XMS_ITS | Encounter Summary ---
Author Organization [facility] Address [address] [place] [address] Care Team Providers Care Lead Section Supervisor Name Role Phone Tessy Monge RN Unavailable Unavaila ble Muareen Lester MD Unavailable [phone] Maureen Lester MD Primary Care Provider + [phone] Maximiliano Diaz MD Unavailable [phone] Maximiliano Diaz MD Unavailable [phone] Encounter Details Date Type Department Care Team (Latest Contact Info) Description 07/07/2023 Medical Correspondence [facility] Health Information Management [address] [facility] [address] [place] [address] [facility], Non-Provider [facility] Social History Tobacco Use Types Packs/Day Years [...] on file 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 Gender Identity Not on file Sexual Orientation Not on file documented as of this encounter Plan of Treatment Not on file documented as of this encounter Visit Diagnoses Not on filedocumented in this encounter Care Teams Lead Section Supervisor Relationship Specialty Start Date End Date Maureen Lester MD [facility]NOTE 3] [address] [place] [address] PCP - General Family Medicine 04/29/22 Tessy Monge, RN Specialty Manager Social Work Cardiology 11/07/21 Maureen Lester MD [facility]NOTE 3] [address] [place] [address] Family Medicine 04/22/22 Maximiliano Diaz MD [address] [facility] [place] [address] [place] [address] Assigned Heart and Vascular Provider 04/12/23 10/10/23 Maximiliano Diaz MD [address] [facility] [address] [place] [address] Assigned Heart and Vascular Provider 10/11/23 10/31/23 documented as of this encounter
--- OUTSIDE RECORDS SUMMARY | 2024-10-06 04:56 | XMS_ITS | Encounter Summary ---
Author Organization [facility] Address [address] [place] [address] Care Team Providers Care Sales Office Manager Name Role Phone Tessy Monge RN Unavailable Unavaila ble Maureen Lester MD Unavailable [phone] Maureen Lester MD Primary Care Provider [phone] Reason for Visit * Reason Comments Advance Care Planning Encounter Details Date Type Department Care Team (Latest Contact Info) Description 07/26/2024 Documentation Only [facility] [address] [facility] [address] [place] [address] Ember Flower Advance Care Planning Social History Tobacco Use Types Packs/Day Years [...] on file 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
--- OUTSIDE RECORDS SUMMARY | 2024-10-06 04:56 | XMS_ITS | Encounter Summary ---
Author Organization [place] Address [address] [place] [id number] Care Team Providers Care Director Of Accounts Payable Name Role Phone Tessy Monge RN Unavailable Unavaila ble Maureen Lester MD Unavailable [phone] Maureen Lester MD Primary Care Provider Reason for Visit * Reason Comments Fall Encounter Details Date Type Department Care Team (Late st Contact Info) Description 07/22/2024 7:45 PM CDT - 07/22/2024 11:50 PM CDT Emergency [facility] Emergency Dept [address] [place] [address] Angelina Bassett MD [facility] [address] [place] [address] Fall, initial encounter; Contusion of right elbow, initial encounter; Elbow laceration, right, initial encounter Discharge Disposition: Senior Care Facility Social History Tobacco Use Types Packs/Day Years [...] on file Legal Sex Male 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 Your provider examined your laceration for any problemssuch a buried foreign body (like glass, a splinter, or gravel), or injury to blood vessels, tendons, and nerves. Your provider may have also rinsed and/or scrubbed your laceration to help prevent an infection. It may not be possible to find all problems with your laceration on the first visit; occasionally foreign bodies or a tendon injury can go undetected. Your laceration may have been closed in one of several ways: No closure: many wounds will heal just fine without closure. Stitches: regular stitches that require removal. Adithya: skin adithya are often used in the scalp/head. Wound adhesive (glue): skin glue can be used for certain lacerations and doesn???t require removal. Wound strips (aka Butterfly bandages or steri-strips): these are bandages that help to close a wound. Absorbable stitches: ???dissolving?? stitches that go away on their own and usually don???t require removal. A small percentage of wounds will develop an infection regardless of how well the wound is cared for. Antibiotics are generally not indicated to prevent an infection so are only given for a small number of high-risk wounds. Some lacerations are too high risk to close, and are left open to heal because closure can increase the likelihood that an infection will develop. Remember that all lacerations, no matter how expertly repaired, will cause scarring. We consider many factors, techniques, and materials, in our efforts to provide the best possible cosmetic outcome. Generally, every Emergency Department visit should have a follow-up clinic visit with either a primary or a specialty clinic/provider. Please follow-up as instructed by your emergency provider today. Return to the Emergency Department right away if: You have more redness, swelling, pain, drainage (pus), a bad smell, or red streaking from your laceration as these symptoms could indicate an infection. You have a fever of 100.4??F or more. You have bleeding that you cannot stop at home. If your cut starts to bleed, hold pressure on the bleeding area with a clean cloth or put pressure over the bandage. If the bleeding does not stop after using constant pressure for 30 minutes, you should return to the Emergency Department for further treatment. An area past the laceration is cool, pale, or blue compared with the other side, or has a slower return of color when squeezed. Your dressing seems too tight or starts to get uncomfortable or painful. For children, signs of a problem might be irritability or restlessness. You have loss of normal function or use of an area, such as being unable to straighten or bend a finger normally. You have a numb area past the laceration. Return to the Emergency Department or see your regular provider if: The laceration starts to come open. You have something coming out of the cut or a feeling that there is something in the laceration. Your wound will not heal, or keeps breaking open. There can always be glass, wood, dirt or other things in any wound. They will not always show up, even on x-rays. If a wound does not heal, this may be why, and it is important to follow-up with your regular provider. Home Care: Take your dressing off in 12-24 hours, or as instructed by your provider, to check your laceration.Remove the dressing sooner if it seems too tight or painful, or if it is getting numb, tingly, or pale past the dressing. Gently wash your laceration 1-2 times daily with clean water and mild soap. It is okay to shower orrun clean water over the laceration, but do not let the laceration soak in water (no swimming). If your laceration was closed with wound adhesive or strips: pat it dry and leave it open to the air. For all other repairs: after you wash your laceration, or at least 2 times a day, apply antibiotic ointment (such as Neosporin?? or Bacitracin??) to the laceration, then cover it with a Band-Aid?? or gauze. Keep the laceration clean. Wear gloves or other protective clothing if you are around dirt. Follow-up for removal: If your wound was closed with adithya or regular stitches, they need to be removed according to theinstructions and timeline specified by your provider today. If your wound was closed with absorbable (???dissolving?? ) sutures, they should fall out, dissolve, or not be visible in about one week. If they are still visible, then they should be removed according to the instructions and timeline specified by your provider today. Scars: To help minimize scarring: Wear sunscreen over the healed laceration when out in the sun. Massage the area regularly once healed. You may apply Vitamin E to the healed wound. Wait. Scars improve in appearance over months and years. If you were given a prescription for medicine here today, be sure to read all of the information (including the package insert) that comes with your prescription. This will include important information about the medicine, its side effects, and any warnings that you need to know about. The pharmacist who fills the prescription can provide more information and answer questions you may have about the medicine. If you have questions or concerns that the pharmacist cannot address, please call or return to the Emergency Department. Remember that you can always come back to the Emergency Department if you are not able to see your regular provider in the amount of time listed above, if you get any new symptoms, or if there is anything that worries you. Discharge Instructions Extremity Injury You were seen today for an injury to an extremity (arm, hand, leg, or foot). You may have a bruise,strain, or fracture (broken bone). There is no sign of fracture on today's xray. Generally, every Emergency Department visit should have a follow-up clinic visit with either a primary or a specialty clinic/provider. Please follow-up as instructed by your emergency provider today. Return to the Emergency Department right away if: Your pain seems to change or get worse or there is pain in a new area that wasn???t evaluated today. Your extremity becomes pale, cool, blue, or numb or tingling past the injury. You have more drainage, redness or pain in the area of the cut or abrasion. You have pain that you cannot control with the medicine recommended or prescribed here, or you havepain that seems too much for your injury. Your child (who is injured) will not stop crying or is much more fussy than normal. You have new symptoms or anything that worries you. What to Expect: Your swelling and pain may be worse the day after your injury, but should not be severe and should start getting better after that. You should not have new symptoms and your pain should not get worse. You may start to get a bruise over the injured area or below the injured area (bruising can follow gravity). Your movement and strength should get better with time. Some injuries may not show up until after you have left the Emergency Department so it is importantto follow-up as directed. Your injury may prevent you from working. Follow-up with your regular provider to get a work release note. Pain medications or your injury may make it unsafe to drive or operate machinery. Home Care: RICE: Rest, Ice, Compression, Elevation Rest: Rest your injured area for at least 1-2 days. After that you may start using your extremity again as long as there is not too much pain. Ice: Apply ice your injured area for 15 minutes at a time, at least 3 times a day. Use a cloth between the ice bag and your skin to prevent frostbite. Do not sleep with an ice pack or heating pad on,since this can cause capps or skin injury. Compression: You may use an elastic bandage ([place]?? Wrap) if it makes you more comfortable. Wrap it just tight enough to provide light compression, like a new pair of socks feels. Loosen the bandage if you have swelling past the bandage. Elevation: Raise the injured area above the level of your heart as much as possible in the first 1-2 days. Use Tylenol?? (acetaminophen), Motrin (ibuprofen), or Advil?? (ibuprofen) for your pain unless you have an allergy or are told not to use these medications by your provider. Take the medications as instructed on the package. Tylenol?? (acetaminophen) is in many prescription medicines and non-prescription medicines--check all of your medicines to be sure you aren???t taking more than 3000 mg per day. Please follow any other instructions that were discussed with you by your provider. Stretching/Exercises: You may have been provided with instructions for stretching or exercises. Ifyour injury was to your arm or shoulder and your provider put you in a sling or an immobilizer, it is important that you take off your immobilizer within 3 days and stretch/move your shoulder, unlessyour provider specifically tells you to not move your shoulder. This is to prevent further injury such as a ???frozen shoulder?? . If you were given a prescription for medicine here today, be sure to read all of the information (including the package insert) that comes with your prescription. This will include important information about the medicine, its side effects, and any warnings that you need to know about. The pharmacist who fills the prescription can provide more information and answer questions you may have about the medicine. If you have questions or concerns that the pharmacist cannot address, please call or return to the Emergency Department. Remember that you can always come back to the Emergency Department if you are not able to see your regular provider in the amount of time listed above, if you get any new symptoms, or if there is anything that worries you. * Attachments The following attachments cannot be sent through Care Everywhere. * Preventing Falls in Older Adults: Video (Occitan) documented in this encounter Medications at Time of Discharge aspirin (ASA) 81 MG EC tablet Take 81 mg by mouth atorvastatin (LIPITOR) 40 MG tablet Take 40 mg by mouth At Bedtime 12/28/2020 carbidopa-levodop a (SINEMET) 25-100 MG tablet Take 2 tablets by mouth 3 times daily 03/05/2021 Cyanocobalamin (B-12 IJ) Inject 1 Dose as directed every 30 days metFORMIN (GLUCOPHAGE) 500 MG tablet Take 1,000 mg by mouth 2 times daily (500MG X 2 = 1,000MG) 09/29/2020 midodrine (PROAMATINE) 2.5 MG tabletIndications :Orthostatic hypotension Take 1 tablet (2.5 mg) by mouth 3 times daily 90 tablet 1 04/29/2022 omeprazole (PRILOSEC) [address] capsule Take 20 mg by mouth daily 12/28/2020 documented as of this encounter ED Notes * Angelina Bassett MD - 07/22/2024 7:53 PM CDT Emergency Department Note History of Present Illness Chief Complaint Fall HPI History is limited due to mental status. Adair Villar is a 79 year old male with a history of CAD, abdominal aortic aneurysm, type 2 diabetes, dementia, parkinson's disease and hypertension who presents via EMS for an evaluation after a fall. The patient stated he remembers the fall and why he is here. He stated he was unsteady and that is why he fell. He stated having pain in his right elbow from the cut. He denies pain anywhere else, neck pain, urinary pain or abdominal pain. He also denies hitting his head or being on the floor for awhile. Independent Historian None Review of External Notes I reviewed a PCP note from 07/02/2023 for frequent falls. Past Medical History Medical History and Problem List Abdominal aortic aneurysm Colon polyps CAD Type 2 diabetes Anxiety GERD Hypercholesterolemia Hyperlipidemia Hypertension Microalbuminuria Orthostatic hypotension Panic disorder Parkinson's disease Dementia Syncope Medications Donepezil Fludrocortisone Glipizide Cyanocobalamin Aspirin 81 mg Atorvastatin Midodrine Metformin Omeprazole Surgical History Endovascular repair aneurysm abdominal aorta Cataract Endovascular abdominal stent graft Physical Exam Patient Vitals for the past 24 hrs: BP Temp Temp src Pulse Resp SpO2 Height Weight 07/22/242310 -- -- -- -- -- 93 % -- -- 07/22/242309 (!) 148/86 -- -- 120 -- -- -- -- 07/22/242144 -- -- -- -- -- 99 % -- -- 07/22/242139 -- -- -- -- -- 100 % -- -- 07/22/242134 -- -- -- -- -- 100 % -- -- 07/22/242129 -- -- -- -- -- 100 % -- -- 07/22/242124 (!) 167/90 -- -- 107 -- 97 % -- -- 07/22/241999 (!) -- -- -- -- 98 % -- -- 07/22/241955 (!) -- -- -- -- -- -- -- 07/22/241953 -- 98.7 ??F (37.1 ??C) Oral 78 15 98 % 1.575 m (5' 2) 74.8 kg (165 lb) Physical Exam General: Elderly male laying on the stretcher Eyes: PERRL, Conjunctive within normal limits HENT: No scalp tenderness or palpable hematoma moist mucous membranes, oropharynx clear. Neck: Maintained in rigid cervical collar. No midline tenderness. No palpable step-off CV: Normal S1S2, no murmur, rub or gallop. Regular rate and rhythm Resp: Clear to auscultation bilaterally, no wheezes, rales or rhonchi. Normal respiratory effort. GI: Abdomen is soft, nontender and nondistended. No palpable masses. No rebound or guarding. MSK: No edema. Mild tenderness to the right posterior elbow. No palpable crepitus or bony deformity. Normal active range of motion. Skin: Warm and dry. 2.5 cm subcutaneous laceration of the right posterior elbow. No visible bone. Neuro: Alert and oriented to person and family members. Responds slowly but appropriately to all questions and commands. No focal findings appreciated Psych: Flat affect Diagnostics Lab Results Labs Ordered and Resulted from Time of ED Arrival to Time of ED Departure BASIC METABOLIC PANEL - Abnormal Result Value Sodium 136 Potassium 3.9 Chloride 99 Carbon Dioxide (CO2) 24 Anion Gap 13 Urea Nitrogen 19.1 Creatinine 0.88 GFR Estimate 86 Calcium 9.2 Glucose 178 (*) CBC WITH PLATELETS AND DIFFERENTIAL - Abnormal WBC Count 9.8 RBC Count 3.82 (*) Hemoglobin 11.7 (*) Hematocrit 36.4 (*) MCV 95 MCH 30.6 MCHC 32.1 RDW 13.1 Platelet Count 229 % Neutrophils 72 % Lymphocytes 14 % Monocytes 12 % Eosinophils 2 % Basophils 0 % Immature Granulocytes 1 NRBCs per 100 WBC 0 Absolute Neutrophils 7.0 Absolute Lymphocytes 1.3 Absolute Monocytes 1.1 Absolute Eosinophils 0.2 Absolute Basophils 0.0 Absolute Immature Granulocytes 0.1 Absolute NRBCs 0.0 CK TOTAL - Normal CK 44 Imaging XR Elbow Right 2 Views Final Result IMPRESSION: The right elbow is negative for fracture or dislocation. There is evidence of slight irregularity along the medial epicondyle suggestive of chronic tendinopathy, tendon origin. No effusion. There is some soft tissue irregularity over the olecranon which could be secondary to contusion and laceration. No foreign body. CT Cervical Spine w/o Contrast Final Result IMPRESSION: HEAD CT: 1. No acute intracranial process. CERVICAL SPINE CT: 1. No CT evidence for acute fracture or post traumatic subluxation. CT Head w/o Contrast Final Result IMPRESSION: HEAD CT: 1. No acute intracranial process. CERVICAL SPINE CT: 1. No CT evidence for acute fracture or post traumatic subluxation. EKG ECG results from 07/22/24 EKG 12 lead Value Systolic Blood Pressure Diastolic Blood Pressure Ventricular Rate 78 Atrial Rate 78 DC Interval 202 QRS Duration 74 QT 392 QTc 446 P Underhill 17 R AXIS -33 T Underhill 16 Interpretation ECG Sinus rhythm with Premature supraventricular complexes Left axis deviation Inferior infarct , age undetermined Abnormal ECG When compared with ECG of 23-Nov-2021 07:11, Premature supraventricular complexes are now Present Inferior infarct is now Present Independent Interpretation CT head shows no intracranial hemorrhage ED Course Medications Administered Medications lidocaine 1% with EPINEPHrine 1:100,000 1 %-1:582910 injection (has no administration in time range) sodium chloride 0.9% BOLUS 500 mL (0 mLs Intravenous Stopped 07/22/24 8741) Procedures Laceration Repair Procedure: Laceration Repair Indication: Laceration Consent: Verbal Tetanus status reviewed Location: Right Upper extremity Length: 2.5 cm Preparation: Irrigation with Sterile Saline. Anesthesia/Sedation: Lidocaine with Epinephrine - 1% Treatment/Exploration: Wound explored, no foreign bodies found Closure: The wound was closed with one layer. Skin/superficial layer was closed with 3 x 4-0 Nylon using Interrupted sutures. Patient Status: The patient tolerated the procedure well: Yes. There were no complications. Discussion of Management None ED Course ED Course as of 07/22/24 210 Steph Jul 22, 20242002 I obtained history and examined the patient as noted above. I reassessed the patient. Family is not at bedside. They note he seems to be at baseline. I discussed findings and plan. They are comfortable with this plan Additional Documentation None Medical Decision Making / Diagnosis [facility] Diagnoses: None MIPS None MDM Adair Villar is a 79 year old male with a history of Parkinson's disease and recurrent falls whopresents emergency department with concerns for a fall at home. He notes he stumbled and fell. He denies head injury. He does have memory issues and therefore head CT and cervical spine ER ordered. Fortunately no signs of acute findings. Laceration over the right elbow repaired. No underlying fracture. Tetanus up-to-date. At this time no indication for admission. The patient is at a living facility and is minimally ambulatory. Fall precautions included in discharge. Recommend suture removal in 10 days. Signs of infection discussed with instruction to return for reassessment should there be any concerning findings of infection, change in mental status, sudden headache, or any other concerns.Tachycardia noted just prior to discharge. Patient was not noting any symptoms and was continued indigo at baseline. Unsure of clinical significance but low concern at this time for a new or emergently concerning process. At this time patient is stable for discharge home. All questions answered prior to discharge. Disposition The patient was discharged. Diagnosis ICD-10-CM 1. Fall, initial encounter W19.XXXA 2. Contusion of right elbow, initial encounter S50.01XA 3. Elbow laceration, right, initial encounter S51.011A Scribe Disclosure: I, Laine Hopper, am serving as a scribe at 9:07 PM on 07/22/2024 to document services personally performed by Angelina Bassett MD based on my observations and the provider's statements to me. Angelina Bassett MD 07/23/24 0203 * Minnie Joy RN - 07/22/2024 7:52 PM CDT Pt. Arrives from [facility] where son found him at 1845 on the floor outside of his bathroom. Pt. not oriented at baseline. Pt. Cooperative. No blood thinner per EMS. Pt. Wearing C Collar. Triage Assessment (Adult) Row Name 07/22/241950 Triage Assessment Airway WDL WDL Respiratory WDL Respiratory WDL WDL Peripheral/Neurovascular WDL Peripheral Neurovascular WDL WDL * Emely Mckee RN - 07/22/2024 7:45 PM CDT Bed: ED34 Expected date: Expected time: Means of arrival: Comments: A540 documented in this encounter Plan of Treatment Not on file documented as of this encounter Procedures Procedure Name Priority Date/Time Associated Diagnosis Comments XR ELBOW RIGHT 2 VIEWS STAT 07/22/2024 9:[address] CERVICAL SPINE W/O CONTRAST STAT 07/22/2024 9:[address] HEAD W/O CONTRAST STAT 07/22/2024 9:13 PM CDT CBC WITH PLATELETS AND DIFFERENTIAL STAT 07/22/2024 8:55 PM CDT CBC WITH PLATELETS & DIFFERENTIAL STAT 07/22/2024 8:55 PM CDT CK TOTAL STAT 07/22/2024 8:55 PM CDT BASIC METABOLIC PANEL STAT 07/22/2024 8:55 PM CDT EKG 12-LEAD, TRACING ONLY STAT 07/22/2024 7:50 PM CDT documented in this encounter Results * XR Elbow Right 2 Views (07/22/2024 [...] EXAM: XR ELBOW RIGHT 2 VIEWS LOCATION: [facility] DATE: 07/22/2024 INDICATION: trauma, pain COMPARISON: None. Procedure Note Bryon Garcia MD - 07/22/2024 EXAM: XR ELBOW RIGHT 2 VIEWS LOCATION: [facility] DATE: 07/22/2024 INDICATION: trauma, pain COMPARISON: None. [...] CONTRAST, CT CERVICAL SPINE W/O CONTRAST LOCATION: [facility] DATE: 07/22/2024 INDICATION: trauma, possible head injury, [...] CONTRAST, CT CERVICAL SPINE W/O CONTRAST LOCATION: [facility] DATE: 07/22/2024 INDICATION: trauma, possible head injury, [...] CONTRAST, CT CERVICAL SPINE W/O CONTRAST LOCATION: [facility] DATE: 07/22/2024 INDICATION: trauma, possible head injury, [...] CONTRAST, CT CERVICAL SPINE W/O CONTRAST LOCATION: [facility] DATE: 07/22/2024 INDICATION: trauma, possible head injury, [...] BLOOD ORDERABLES F inal Result [facility] [address] Lab (1st floor, no room number) [place] [address], [facility] * CK total (07/22/2024 8:55 PM CDT) CK 44 39 - 308 U/L 07/22/2024 9:23 PM CDT [facility] Blood STRUCTURE OF RIGHT HAND / Unknown Venipuncture / Unknown 07/22/2024 8:55 PM CDT 07/22/2024 9:00 PM CDT us Angelina Bassett MD LAB - BLOOD ORDERABLES F inal Result [facility] [address] Lab (1st floor, no room number) [place] [address], [facility] * (ABNORMAL) Basic metabolic panel [...] - 23.0 mg/dL 07/22/2024 9:23 PM CDT LABORATORY Creatinine 0.88 0.67 - 1.17 mg/dL 07/22/2024 9:23 PM CDT LABORATORY GFR Estimate 86 >60 mL/min/1.7 3m2 07/22/2024 9:23 PM CDT LABORATORY Comment:eGFR calculated usin 2020 CKD-EPI equation. [...] - 99 mg/dL 07/22/2024 9:23 PM CDT LABORATORY Blood STRUCTURE OF RIGHT HAND / Unknown Venipuncture / Unknown 07/22/2024 8:55 PM CDT 07/22/2024 9:00 PM CDT us Angelina Bassett MD LAB - BLOOD ORDERABLES F inal Result LABORATORY [facility] [address] Lab (1st floor, no room number) [place] [address] * EKG 12 lead (07/22/2024 7:50 PM CDT) Systolic Blood Pressure mmHg RADIOLOGY RESULTS Diastolic Blood Pressure mmHg RADIOLOGY RESULTS Ventricular Rate 78 BPM RAD IOLOGY RESULTS Atrial Rate 78 BPM RADIOLOG Y RESULTS DC Interval 202 ms RADIOLOG Y RESULTS QRS Duration 74 ms RADIOLO GY RESULTS QT 392 ms RADIOLOGY RESULTS QTc 446 ms RADIOLOGY RESULTS P Underhill 17 degrees RADIOLOGY RESULTS R AXIS -33 degrees RADIOLOGY RESULTS T Underhill 16 degrees RADIOLOGY RESULTS Interpretation ECG Sinus rhythm with Premature supraventricular complexes Left axis deviation Inferior infarct , age undetermined Abnormal ECG When compared with ECG of 23-Nov-2021 07:11, Premature supraventricular complexes are now Present Inferior infarct is now Present Confirmed by - EMERGENCY ROOM, PHYSICIAN ([id number]), image editor HIREN ALVARES ([id number]) on 07/23/2024 7:19:34 AM RADIOLOGY RESULTS 07/22/2024 7:50 PM CDT 07/23/2024 7:19 AM CDT us Angelina Bassett MD ECG ORDERABLES Edited R esult - Final RADIOLOGY RESULTS documented in this encounter Visit Diagnoses Diagnosis Fall, initial encounter Contusion of right elbow, initial encounter Elbow laceration, right, initial encounter documented in this encounter Administered Medications Inactive Administered Medications - up to 3 most recent administrations Medication Order MAR Action Action Date Dose Rate Site sodium chloride 0.9% BOLUS 500 mL Intravenous, 500 mL, ONCE, at 500 mL/hr, Administer over 1 Hours, On Steph 07/22/24 at 2005, For 1 dose $New Bag 07/22/2024 8:35 PM CDT 500 mLs 500 mL/hr documented in this encounter Active and Recently Administered Medications Times are shown in CDT. Scheduled Medication Order 07/20/2024 07/21/2024 07/22/2024 sodium chloride 0.9% BOLUS 500 mL (COMPLETED) Intravenous, 500 mL, ONCE, at 500 mL/hr, Administer over 1 Hours, On Steph 07/22/24 at 2005, For 1 dose 2034 ($New Bag - Pro vider: Sharon Marshall, RN)[id number] (Stopped - Provider: Sharon Marshall RN) documented in this encounter Care Teams Director Of Accounts Payable Relationship Specialty Start Date End Date Maureen Lester MD [address] [address] PCP - General Family Medicine 04/29/22 Tessy Monge RN Specialty Quality Assurance Qa Lab Technician Cardiology 11/07/21 Maureen Lester MD [facility] [address] [place] [id number] Family Medicine 04/22/22 documented as of this encounter
--- OUTSIDE RECORDS SUMMARY | 2024-10-06 04:56 | XMS_ITS | Encounter Summary ---
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 [address] [place] [address] PCP - General Family Medicine 04/29/22 Tessy Monge RN Specialty Mercury Recoverer Cardiology 11/07/[address] [facility] [address] [place] [address] Family Medicine 04/22/22 documented as of this encounter
[2024-10-06 05:07] LABS: Basophils Absolute Auto 0.02 K/uL (0.00-0.30); Basophils Percent Auto 0.2 % (0.0-3.0); Eosinophils Absolute Auto 0.32 K/uL (0.00-0.50); Eosinophils Percent Auto 3.5 % (0.0-7.0); Hematocrit 38.6 % (37.0-53.0); Hemoglobin* 12.5 gm/dL (13.5-17.5); Immature Granulocytes Abs Auto 0.03 K/uL (0.00-0.30); Immature Granulocytes Pct Auto 0.3 %; Lymphocytes Percent Auto 11.8 % (20-44); Mean Corpuscular HGB Conc 32 gm/dL (32-36); Mean Corpuscular Hemoglobin 31 pg (26-34); Mean Corpuscular Volume 95 fL (80-100); Monocytes Percent Auto 8.8 % (0.0-11.0); Neutrophils Percent Auto 75.4 % (42.0-72.0); Platelet Count* 239 K/uL (140-440); RDW Coefficient of Variation % 12.7 % (11.5-15.5); Red Blood Count 4.07 m/uL (4.30-5.90); White Blood Count* 9.09 K/uL (4.50-11.00)
[2024-10-06 05:08] LABS: Slide Review Reflex No
[2024-10-06 05:15] LABS: Appearance Urine Clear (Clear); Bilirubin Urine Negative (Negative); Blood Urine Negative (Negative); Color Urine Yellow (Yellow); Glucose Urine Negative (Negative); Ketones Urine Negative (Negative); Leukocyte Esterase Urine Negative (Negative); Nitrite Urine Negative (Negative); Protein Urine Negative (Negative); Urobilinogen Urine 0.2 (0.2-1.0); pH Urine 6.5 (5.0-8.5)
[2024-10-06 05:15] LABS: Troponin, Point-of-Care* 0.01 ng/ml (0.01-0.04)
[2024-10-06 05:19] LABS: RBC Urine 0-2 (0-2)
[2024-10-06 05:20] LABS: Squamous Epithelial Cell Urine Few (None-Few); WBC Urine 0-2 (0-5)
[2024-10-06 05:21] LABS: Chloride* 101 mmol/L (96-114); Potassium* 3.9 mmol/L (3.6-5.1); Sodium* 136 mmol/L (135-149)
[2024-10-06 05:23] LABS: Bilirubin Total* 0.3 mg/dL (0.1-1.5); Creatinine* 0.9 mg/dL (0.5-1.5); Estimated Glomerular Filt Rate 86 ml/min
[2024-10-06 05:24] LABS: Alanine Aminotransferase* 9 U/L (4-50); Alkaline Phosphatase* 101 U/L (40-150); Anion Gap 7 mEq/L (7-15); Aspartate Amino Transferase* 19 U/L (12-35); Blood Urea Nitrogen* 17 mg/dL (7-30); Carbon Dioxide* 28 mmol/L (20-32); Glucose* 137 mg/dL (60-115); Total Protein* 7.1 g/dL (6.0-8.3)
[2024-10-06 05:25] LABS: Calcium* 8.9 mg/dL (8.4-10.6)
[2024-10-06 05:43] LABS: C Reactive Protein* < 0.5 mg/dL (0.5-1.0); NT Pro B Type NatriureticPept* 351 pg/mL
[2024-10-06 05:49] LABS: PCR FLU A Negative PCR FLU A (Negative); PCR FLU B Negative PCR FLU B (Negative); PCR RSV Negative PCR RSV (Negative); SARS PCR* Negative SARS-CoV-2 (Negative)
== END 2024-10-06 06:00 | disposition home or self-care (01) ==
PROVIDERS: Emergency Provider Family Medicine; PCP Emergency Medicine
DX: R51.9 Headache, unspecified (principal); G20.A1 Parkinson's disease without dyskinesia, without mention of fluctuations; Z71.1 Person with feared health complaint in whom no diagnosis is made
CPT/HCPCS: 36415; 80053; 81001; 83605; 83880; 84484; 85025; 86140; 87086; 87631; 93005; 99284; A9270